=== PATIENT | female | born 1970 | race Caucasian/White ===

== ENCOUNTER 2017-11-01 21:24 | Emergency (ER) | payer MEDICAID, OTHER ==
[~2017-11-01] VITALS: Ht 165.1 cm; Wt 155.0 kg
[~2017-11-01 21:24] MED LIST: FLUO-1 PO; GABA100C4 PO; LISI10TA PO; MECL25CH PO; METF500 PO; NOVONP2 SQ; NOVORP2 SQ; PLAV75TA PO; SIMV10TA PO
[2017-11-01 21:26] VITALS: BP 183/86; PULSE 100; RESP 16; TEMP 97.6; O2SAT 98
[2017-11-01] MEDS ORDERED: METF500T PO (22:05)
[2017-11-01] MEDS ORDERED: LISI10TA PO (22:05)
[2017-11-01] MEDS ORDERED: SIMV10TA PO (22:05)
[2017-11-01] MEDS ORDERED: VIST25CA PO (22:05)
[2017-11-01] MEDS ORDERED: INSU100V2 SQ (22:05)
[2017-11-01] MEDS ORDERED: INSU100V3 SQ (22:05)
[2017-11-01] MEDS ORDERED: HYDR-3516 PO (22:09)
[2017-11-01] MEDS ORDERED: SODIUM CHLOR 0.9% 1000 ML INJ 1,000 ML IV SCH ×2 (22:14)
[2017-11-01] MEDS ORDERED: ONDANSETRON HCL 4 MG/2 ML VIAL IVP ONE (22:15)
[2017-11-01] MEDS ORDERED: HYDROmorphone HCL PF 2 MG/ML VIAL IVS ONE (22:15)
[2017-11-01] MEDS ORDERED: SODIUM CHLORIDE 0.9% FLUSH 10 ML FLUSH IV FLUSH PRN (22:15)
--- NOTE | 2017-11-01 22:20 | PD ---
HPI Chief Complaint: Abdominal Pain Time Seen by Provider: 22:08 Travel History International Travel<30 days: No Contact w/Intl Traveler<30days: No Traveled to known affect area: No History of Present Illness HPI This patient was examined in the presence of a female nurse. 46-year-old female presents for evaluation. For one week she has had abdominal pain, nausea and vomiting, left foot pain associated with a wound on her left foot. Pain is sharp, constant, epigastric, associated with nausea, multiple episodes of nonbloody emesis, decreased appetite. She reports that she recently had a fracture to left foot and was wearing a splint. This was taken off several weeks ago. More recently she was intermittently wearing a brace on her foot and she believes that the brace rubbed against her skin and she developed a wound on her left heel. Over the past week the wounds become more painful, worse when walking. She also endorses hyperglycemia- she is prescribed metformin and insulin for type 2 diabetes however she has not had the energy to take her medications or check her blood sugar regularly. Denies fevers or chills, diarrhea or constipation, dysuria, chest pain or shortness of breath, cough or congestion. She has no other complaints. PFSH Past Medical History Depression: Yes High Cholesterol: Yes Diabetes: Yes Patient Takes Glucophage: Yes Diminished Hearing: No Hypertension: Yes Respiratory: Yes (LUNG PE ) Immunizations Current: Yes Tetanus Vaccination: Unknown Influenza Vaccination: No ?: Not : 2 Para: 2 Tubal Ligation: Yes Past Surgical History Abdominal Surgery: Yes (X3 HERNIA REPAIR) Section: Yes (X2) Gynecologic Surgery: Yes (LEFT OOPHERECTOMY) Other Surgery: Yes (LEFT TOE AMPUTATION) Social History Alcohol Use: No Tobacco Use: No Substance Use: No Allergies-Medications (Allergen,Severity, Reaction): Coded Allergies: morphine (Unverified Allergy, Severe, HIVES/ITCHING, 11/01/17) Reported Meds & Prescriptions Reported Meds & Active Scripts Active Zofran (Ondansetron HCl) 4 Mg Tab 4 Mg PO Q6HR PRN Clindamycin (Clindamycin HCl) 300 Mg Cap 300 Mg PO TID 10 Days Reported Hydrocodone-Acetaminophen 5-325 mg Tab 1 Tab PO Q4H PRN Humulin N Inj (Insulin Human NPH) 1,000 Unit/10 Ml Vial 68 Units SQ BID Humulin R Inj (Insulin Human Regular) 1,000 Unit/10 Ml Vial 2-10 Units SQ TIDAC PRN IMPORTANT TO EAT A MEAL WITHIN 30-60 MINUTES OF DOSING Lisinopril-Hctz 10-12.5 Mg Tab 1 Tab PO DAILY Vistaril (Hydroxyzine Pamoate) 25 Mg Cap 75 Mg PO BID Simvastatin 10 Mg Tab 10 Mg PO HS Metformin (Metformin HCl) 500 Mg Tab 500 Mg PO BIDPC Review of Systems Except as stated in HPI: all other systems reviewed are Neg Physical Exam Narrative GENERAL: This is an obese female who is in no acute distress SKIN: Warm and dry. There is an ulceration with some surrounding erythematous changes on the left heel. Multiple excoriated wounds are noted on the abdomen which the patient reports are chronic. HEAD: Atraumatic. Normocephalic. EYES: Pupils equal and round. No scleral icterus. No injection or drainage. ENT: No nasal bleeding or discharge. Mucous membranes pink and moist. NECK: Trachea midline. No JVD. CARDIOVASCULAR: Regular rate and rhythm. No murmur appreciated. RESPIRATORY: No accessory muscle use. Clear to auscultation. Breath sounds equal bilaterally. GASTROINTESTINAL: Abdomen soft, tender to palpation in the epigastrium without guarding. No CVA tenderness. MUSCULOSKELETAL: No obvious deformities. No clubbing. No cyanosis. No edema. NEUROLOGICAL: Awake and alert. No obvious cranial nerve deficits. Motor grossly within normal limits. Normal speech. PSYCHIATRIC: Appropriate mood and affect; insight and judgment normal. Data Data Last Documented VS Vital Signs Date Time Temp Pulse Resp B/P (MAP) Pulse Ox O2 Delivery O2 Flow Rate FiO2 11/01/17 21:26 97.6 100 16 183/86 (118) 98 Room Air Orders Orders Complete Blood Count With Diff (11/01/17 22:14) Comprehensive Metabolic Panel (11/01/17 22:14) Lipase (11/01/17 22:14) Urinalysis - C+S If Indicated (11/01/17 22:14) Ct Abd/Pel W Iv Contrast(Rout) (11/01/17 22:14) Iv Access Insert/Monitor (11/01/17 22:14) Ecg Monitoring (11/01/17 22:14) Oximetry (11/01/17 22:14) Hydromorphone Pf Inj (Dilaudid Pf Inj) (11/01/17 22:15) Ondansetron Inj (Zofran Inj) (11/01/17 22:15) Sodium Chlor 0.9% 1000 Ml Inj (Ns 1000 M (11/01/17 22:14) Sodium Chloride 0.9% Flush (Ns Flush) (11/01/17 22:15) Beta Hydroxybutyrate (Acetone) (11/01/17 22:14) Foot, Complete (Isc1hcm) (11/01/17 ) Sodium Chlor 0.9% 1000 Ml Inj (Ns 1000 M (11/01/17 22:14) Arterial Blood Gas (Abg) (11/01/17 ) Insulin Human Regular Inj (Novolin R Inj (11/02/17 00:00) Iohexol 350 Inj (Omnipaque 350 Inj) (11/02/17 01:11) Sulfamet-Trimeth Ds 800-160 Mg (Bactrim (11/02/17 02:00) Cephalexin (Keflex) (11/02/17 02:00) Wound Care (11/02/17 01:57) Clindamycin (Cleocin) (11/02/17 02:15) Insulin Human Regular Inj (Novolin R Inj (11/02/17 02:15) Sodium Chlor 0.9% 1000 Ml Inj (Ns 1000 M (11/02/17 02:03) Insulin Human Regular Inj (Novolin R Inj (11/02/17 02:15) Ed Discharge Order (11/02/17 02:15) Clindamycin 600 Mg/Ns Premix (Cleocin 60 (11/02/17 02:30) Labs Laboratory Tests Test 11/01/17 22:22 11/01/17 22:47 White Blood Count 8.1 TH/MM3 Red Blood Count 4.60 MIL/MM3 Hemoglobin 13.2 GM/DL Hematocrit 39.0 % Mean Corpuscular Volume 84.6 FL Mean Corpuscular Hemoglobin 28.6 PG Mean Corpuscular Hemoglobin Concent 33.8 % Red Cell Distribution Width 13.4 % Platelet Count 378 TH/MM3 Mean Platelet Volume 7.0 FL Neutrophils (%) (Auto) 68.6 % Lymphocytes (%) (Auto) 19.3 % Monocytes (%) (Auto) 11.1 % Eosinophils (%) (Auto) 0.6 % Basophils (%) (Auto) 0.4 % Neutrophils # (Auto) 5.6 TH/MM3 Lymphocytes # (Auto) 1.6 TH/MM3 Monocytes # (Auto) 0.9 TH/MM3 Eosinophils # (Auto) 0.1 TH/MM3 Basophils # (Auto) 0.0 TH/MM3 CBC Comment DIFF FINAL Differential Comment Blood Urea Nitrogen 19 MG/DL Creatinine 1.24 MG/DL Random Glucose 424 MG/DL Total Protein 9.1 GM/DL Albumin 3.6 GM/DL Calcium Level 9.8 MG/DL Alkaline Phosphatase 90 U/L Aspartate Amino Transf (AST/SGOT) 19 U/L Alanine Aminotransferase (ALT/SGPT) 17 U/L Total Bilirubin 1.1 MG/DL Sodium Level 133 MEQ/L Potassium Level 4.7 MEQ/L Chloride Level 94 MEQ/L Carbon Dioxide Level 27.1 MEQ/L Anion Gap 12 MEQ/L Estimat Glomerular Filtration Rate 47 ML/MIN Lipase 158 U/L B-Hydroxybutyrate 3.08 MMOL/L Blood Gas Puncture Site RT RADIAL Blood Gas Patient Temperature 98.6 Blood Gas HCO3 24 mmol/L Blood Gas Base Excess 0.2 mmol/L Blood Gas Oxygen Saturation 94 % Arterial Blood pH 7.44 Arterial Blood Partial Pressure CO2 36 mmHg Arterial Blood Partial Pressure O2 86 mmHG Arterial Blood Oxygen Content 16.1 Vol % Arterial Blood Carboxyhemoglobin 1.7 % Arterial Blood Methemoglobin 0.6 % Blood Gas Hemoglobin 12.1 G/DL Oxygen Delivery Device ROOM AIR Blood Gas Inspired Oxygen 21 % MDM Medical Decision Making Medical Screen Exam Complete: Yes Emergency Medical Condition: Yes Medical Record Reviewed: Yes Differential Diagnosis Foot ulceration, cellulitis, osteomyelitis, pancreatitis, gastroenteritis, DKA, HHS, dehydration, gastritis, colitis, cholecystitis Narrative Course The patient was placed on ECG monitoring pulse oximetry. CT of the abdomen and pelvis, left foot x-ray have been ordered. Lab work has been ordered. The patient will be given IV fluids, Zofran, Dilaudid. X-ray reveals CONCLUSION: 1. Fifth metatarsal base fracture with faint fracture line remaining visible. 2. Diffuse moderate bony demineralization. 3. Healed proximal lateral cuboid fracture. Mild osteophyte formation at the calcaneocuboid joint. 4. Absent third toe distal phalanx. CT abdomen and pelvis reveals CONCLUSION: 1. Postsurgical findings of the anterior abdominal wall and lower abdomen/ pelvis. Prominent midline lower anterior abdominal wall hernia and left-sided para midline anterior abdominal wall hernia. Hernias contain small bowel loops and transverse colon. No evidence of bowel dilatation or associated bowel wall thickening. 2. Left ovary is somewhat prominent in size measuring 5.4 x 3.0 cm. May be related to a left ovarian cyst. 3. Spleen is upper limits of normal in size. Possible early findings of cirrhosis in the liver. 4. Degenerative findings of the lower lumbar spine. Reassuringly the patient has not vomited at all during her hospital stay. Lab work notable for blood glucose of 424, BUN 19, creatinine 1.24, beta hydroxybutyrate 3.8. The patient is not in DKA and she has no leukocytosis. No evidence for acute intra-abdominal process, no evidence for osteomyelitis of the foot. Certainly given her diabetes with poor medication compliance, she is at high risk of worsening infection from her recent left foot wound. For that reason the patient will be referred to Dr. Bey for close wound care follow-up. The patient was given 2 L of IV fluids as well as insulin here. She will be given doses of clindamycin prior to discharge. Her repeat blood sugar was 370 and she appears to be very insulin resistant. Therefore additional 10 units of insulin and 1 L of fluids have been ordered however the patient is refusing because she wants to go home. An oral dose of clindamycin was also ordered however the patient refused because she did not want to attempt to swallow: Mycin. Therefore IM clindamycin was ordered and she will be discharged with prescriptions for clindamycin, Zofran. Diagnosis Primary Impression: Hyperglycemia Additional Impressions: Nausea and vomiting Cellulitis of left foot Open wound of left foot Referrals: Saleem BeyM Additional Instructions: As discussed, it is essential that you monitor your blood sugar regularly and take your diabetic medications as prescribed. Follow up closely with family support specialist Dr. Bey in the next 3-4 days. Medications as prescribed. Return for any emergent medical conditions. Med/Other Pt SpecificInfo: Prescription(s) given, Wound Care Scripts Ondansetron (Zofran) 4 Mg Tab 4 MG PO Q6HR Y for NAUSEA OR VOMITING, #20 TAB 0 Refills Prov: Jose Carlos Mullen MD 11/02/17 Clindamycin (Clindamycin) 300 Mg Cap 300 MG PO TID for Infection for 10 Days, CAP 0 Refills Prov: Jose Carlos Mullen MD 11/02/17 Disposition: 01 DISCHARGE HOME Condition: Stable Gume Cole Nov 01, 2017 22:20
[2017-11-01 23:08] LABS: AUTOMATED NEUTROPHIL # 5.6 TH/MM3 (1.8-7.7); BASOPHIL % 0.4 % (0.0-2.0); EOSINOPHIL # 0.1 TH/MM3 (0-0.4); EOSINOPHIL % 0.6 % (0.0-4.0); HEMOGLOBIN 13.2 GM/DL (11.6-15.3); LYMPH % 19.3 % (9.0-44.0); LYMPHOCYTE # 1.6 TH/MM3 (1.0-4.8); MEAN CELL VOLUME 84.6 FL (80.0-100.0); MEAN CORPUSCULAR HEMOGLOBIN 28.6 PG (27.0-34.0); MEAN CORPUSCULAR HGB CONC 33.8 % (32.0-36.0); MONO % 11.1 % (0.0-8.0); MONOCYTE # 0.9 TH/MM3 (0-0.9); NEUT % 68.6 % (16.0-70.0); PLATELET COUNT 378 TH/MM3 (150-450); RED CELL DISTRIBUTION WIDTH 13.4 % (11.6-17.2); WHITE BLOOD COUNT 8.1 TH/MM3 (4.0-11.0)
[2017-11-01 23:22] LABS: ALBUMIN 3.6 GM/DL (3.4-5.0); ALKALINE PHOSPHATASE 90 U/L (45-117); ALT (GPT) 17 U/L (10-53); AST (GOT) 19 U/L (15-37); BICARBONATE 27.1 MEQ/L (21.0-32.0); BLOOD UREA NITROGEN 19 MG/DL (7-18); CALCIUM 9.8 MG/DL (8.5-10.1); CHLORIDE 94 MEQ/L (98-107); CREATININE 1.24 MG/DL (0.50-1.00); GLOMERULAR FILTRATION RATE 47 ML/MIN (>89); LIPASE 158 U/L (73-393); SODIUM (NA) 133 MEQ/L (136-145); TOTAL BILIRUBIN ADULT 1.1 MG/DL (0.2-1.0); TOTAL PROTEIN 9.1 GM/DL (6.4-8.2)
[2017-11-01 23:24] LABS: GLUCOSE,RANDOM 424 MG/DL (74-106)
--- NOTE | 2017-11-02 00:02 | RADRPT ---
EXAM DATE/TIME: 11/01/2017 23:21 [facility] COMPARISON: No previous studies available for comparison. INDICATIONS : Pt broke foot a few months ago- says not healing properly. MEDICAL HISTORY : None. SURGICAL HISTORY : None. ENCOUNTER: Initial ACUITY: 2 months PAIN SCORE: 7/10 LOCATION: Left Foot FINDINGS: 3 views of the left foot. Moderate severity diffuse bone demineralization. Third toe distal phalanx i s absent. Fracture of the styloid of the fifth metatarsal base. Fracture line is faintly visible. Bon y remodeling is noted at the metatarsal shaft. Bone alignment is within normal limits. A mild deformi ty of the lateral proximal pole of the cuboid indicating subacute to chronic healed fracture deformit y. Moderate sized plantar calcaneal spur. CONCLUSION: 1. Fifth metatarsal base fracture with faint fracture line remaining visible. 2. Diffuse moderate bony demineralization. 3. Healed proximal lateral cuboid fracture. Mild osteophyte formation at the calcaneocuboid joint. 4. Absent third toe distal phalanx. Missael Bush MD on November 01, 2017 at 23:57 Board Certified Radiologist. This report was verified electronically.
[2017-11-02] MEDS ORDERED: IOHEXOL 350 MG/ML 10 ML VIAL (for RAD DIAG) IVCONTRAST ONE (01:11)
--- NOTE | 2017-11-02 01:30 | RADRPT ---
EXAM DATE/TIME: 11/02/2017 00:56 [facility] COMPARISON: No previous studies available for comparison. INDICATIONS : Abdominal pain with vomiting. IV CONTRAST: 85 cc Omnipaque 350 (iohexol) IV ORAL CONTRAST: No oral contrast ingested. RADIATION DOSE: 37.66 CTDIvol (mGy) ; Patient body habitus MEDICAL HISTORY : Hypertension. Diabetes mellitus type 2. Hernia SURGICAL HISTORY : Tubal ligation. ENCOUNTER: Initial ACUITY: 1 day PAIN SCALE: 6/10 LOCATION: abdomen TECHNIQUE: Volumetric scanning of the abdomen and pelvis was performed. Using automated exposure control and ad justment of the mA and/or kV according to patient size, radiation dose was kept as low as reasonably achievable to obtain optimal diagnostic quality images. DICOM format image data is available electro nically for review and comparison. FINDINGS: LOWER LUNGS: The visualized lower lungs are clear. LIVER: Minimal nodularity of the liver capsule diffusely indicating possible early findings of cirrhosis. No focal masses identified. Gallbladder within normal limits. SPLEEN: Spleen is upper limits of normal in size measuring 12 cm in craniocaudal dimension PANCREAS: Within normal limits. KIDNEYS: Normal in size and shape. There is no mass, stone or hydronephrosis. ADRENAL GLANDS: Within normal limits. VASCULAR: There is no aortic aneurysm. BOWEL/MESENTERY: The stomach, small bowel, and colon demonstrate no acute abnormality. There is no free intraperitone al air or fluid. ABDOMINAL WALL: Left-sided para midline anterior abdominal wall hernia containing a portion of the transverse colon. The hernia measures 10 cm in diameter. The neck of the hernia measures 5 cm. Midline lower anterior a bdominal wall hernia in the pelvis containing multiple loops of small bowel. It measures 13 cm. The n jp measures 3.7 cm. RETROPERITONEUM: There is no lymphadenopathy. BLADDER: No wall thickening or mass. REPRODUCTIVE: Left ovary is prominent measuring 5.4 x 3.0 cm. INGUINAL: There is no lymphadenopathy or hernia. MUSCULOSKELETAL: Moderate severity degenerative findings of the lower lumbar spine. CONCLUSION: 1. Postsurgical findings of the anterior abdominal wall and lower abdomen/pelvis. Prominent midline l ower anterior abdominal wall hernia and left-sided para midline anterior abdominal wall hernia. Herni as contain small bowel loops and transverse colon. No evidence of bowel dilatation or associated kermit l wall thickening. 2. Left ovary is somewhat prominent in size measuring 5.4 x 3.0 cm. May be related to a left ovarian cyst. 3. Spleen is upper limits of normal in size. Possible early findings of cirrhosis in the liver. 4. Degenerative findings of the lower lumbar spine. Missael Bush MD on November 02, 2017 at 1:17 Board Certified Radiologist. This report was verified electronically.
[2017-11-02] MEDS ORDERED: CEPHALEXIN MONOHYDRATE 500 MG CAP PO ONE (02:00)
[2017-11-02] MEDS ORDERED: SULFAMETHOXAZOLE-TRIMETHOPRIM DS 800-160 MG TAB PO ONE (02:00)
[2017-11-02] MEDS ORDERED: CLIN300C5 PO (02:01)
[2017-11-02] MEDS ORDERED: ZOFR4TAB PO (02:01)
[2017-11-02] MEDS ORDERED: SODIUM CHLOR 0.9% 1000 ML INJ 1,000 ML IV SCH (02:03)
[2017-11-02] MEDS ORDERED: CLINDAMYCIN 150 MG CAP PO ONE (02:15)
[2017-11-02] MEDS ORDERED: INSULIN HUMAN REGULAR 1,000 UNITS/10 ML VIAL IV PUSH ONE ×3 (02:15)
[2017-11-02] MEDS ORDERED: CLINDAMYCIN PHOS 600 MG/4 ML VIAL IM ONE (02:30)
[2017-11-02] MEDS ORDERED: CLINDAMYCIN 600 MG/NS PREMIX 50 ML IV ONE (02:30)
== END 2017-11-02 02:59 | disposition home or self-care (01) ==
LOC: NEPD 21:24
DX: E11.65 Type 2 diabetes mellitus with hyperglycemia (principal); R11.2 Nausea with vomiting, unspecified; L03.116 Cellulitis of left lower limb; K43.9 Ventral hernia without obstruction or gangrene; F32.9 Major depressive disorder, single episode, unspecified; E78.00 Pure hypercholesterolemia, unspecified; I10 Essential (primary) hypertension; Z79.4 Long term (current) use of insulin; Z79.899 Other long term (current) drug therapy
CPT/HCPCS: 36600; 73630; 74177; 80053; 82010; 82805; 83690; 85025; 96361; 96372; 96374; 96375; 99285; J1170; J1815; J2405; J7030; Q9967

== ENCOUNTER 2018-02-07 05:19 | Observation (INO) | payer OTHER ==
[2018-02-07] VITALS (8 sets, daily range): BP systolic 158–211; BP diastolic 70–109; PULSE 84–98; RESP 16–20; TEMP 97.8–98.7; O2SAT 94–100
[~2018-02-07] VITALS: Ht 165.1 cm; Wt 172.5 kg
[~2018-02-07 05:19] MED LIST changes: +CLIN300C5 PO; -FLUO-1 PO; -GABA100C4 PO; +HYDR-3516 PO; +INSU100V2 SQ; +INSU100V3 SQ; -MECL25CH PO; -METF500 PO; +METF500T PO; -NOVONP2 SQ; -NOVORP2 SQ; -PLAV75TA PO; +VIST25CA PO; +ZOFR4TAB PO
[2018-02-07] MEDS ORDERED: SODIUM CHLOR 0.9% 1000 ML INJ 1,000 ML IV ONE ×2 (05:34→07:00)
[2018-02-07] MEDS ORDERED: diphenhydrAMINE HCL 50 MG/ML VIAL IV PUSH ONE (05:45)
[2018-02-07] MEDS ORDERED: METOCLOPRAMIDE HCL 10 MG/2 ML VIAL IV PUSH ONE (05:45)
[2018-02-07] MEDS ORDERED: SODIUM CHLORIDE 0.9% FLUSH 10 ML FLUSH IVF PRN (05:45)
[2018-02-07 05:50] LABS: AUTOMATED NEUTROPHIL # 14.1 TH/MM3 (1.8-7.7); BASOPHIL % 0.2 % (0.0-2.0); HEMOGLOBIN 12.6 GM/DL (11.6-15.3); LYMPH % 4.5 % (9.0-44.0); LYMPHOCYTE # 0.7 TH/MM3 (1.0-4.8); MEAN CELL VOLUME 81.3 FL (80.0-100.0); MEAN CORPUSCULAR HEMOGLOBIN 26.9 PG (27.0-34.0); MEAN CORPUSCULAR HGB CONC 33.1 % (32.0-36.0); MEAN PLATELET VOLUME 7.4 FL (7.0-11.0); MONO % 2.5 % (0.0-8.0); MONOCYTE # 0.4 TH/MM3 (0-0.9); NEUT % 92.8 % (16.0-70.0); PLATELET COUNT 237 TH/MM3 (150-450); RED BLOOD COUNT 4.68 MIL/MM3 (4.00-5.30); RED CELL DISTRIBUTION WIDTH 15.2 % (11.6-17.2); WHITE BLOOD COUNT 15.2 TH/MM3 (4.0-11.0)
[2018-02-07] MEDS ORDERED: PANTOPRAZOLE INJ 80 MG in SODIUM CHLORIDE 0.9% INJ 35 ML IV ONE (06:00)
[2018-02-07] MEDS ORDERED: PANTOPRAZOLE INJ 80 MG in SODIUM CHLORIDE 0.9% INJ 100 ML IV SCH (06:00)
--- NOTE | 2018-02-07 06:05 | PD ---
HPI . Vomiting Chief Complaint: GI Complaint Time Seen by Provider: 05:23 Travel History International Travel<30 days: No Contact w/Intl Traveler<30days: No Traveled to known affect area: No History of Present Illness HPI This is a diabetic patient who weighs 200 kg with a BMI of 73 who presents with the chief complaint of vomiting for the last several days. It has become acutely worse tonight. She states that the emesis became coffee ground in color about 2 hours prior to presentation. She is complaining with associated abdominal pain and rates the pain 10/10. She has a history of gastroparesis, hypertension, hyperlipidemia and previous PE. She is on Eliquis for the PE. [facility] Past Medical History Depression: Yes High Cholesterol: Yes Diabetes: Yes Patient Takes Glucophage: No Diminished Hearing: No Hypertension: Yes Respiratory: Yes (LUNG PE ) Immunizations Current: Yes Tetanus Vaccination: Unknown Influenza Vaccination: No ?: Not : 2 Para: 2 Tubal Ligation: Yes Past Surgical History Abdominal Surgery: Yes (X3 HERNIA REPAIR) Section: Yes (X2) Gynecologic Surgery: Yes (LEFT OOPHERECTOMY) Other Surgery: Yes (LEFT TOE AMPUTATION) Social History Alcohol Use: No Tobacco Use: No Substance Use: No Allergies-Medications (Allergen,Severity, Reaction): Coded Allergies: morphine (Unverified Allergy, Severe, HIVES/ITCHING, 02/07/18) Reported Meds & Prescriptions Reported Meds & Active Scripts Active Reported Humulin N Inj (Insulin Human NPH) 1,000 Unit/10 Ml Vial 68 Units SQ BID Humulin R Inj (Insulin Human Regular) 1,000 Unit/10 Ml Vial 2-10 Units SQ TIDAC PRN IMPORTANT TO EAT A MEAL WITHIN 30-60 MINUTES OF DOSING Lisinopril-Hctz 10-12.5 Mg Tab 1 Tab PO DAILY Vistaril (Hydroxyzine Pamoate) 25 Mg Cap 75 Mg PO BID Simvastatin 10 Mg Tab 10 Mg PO HS Metformin (Metformin HCl) 500 Mg Tab 500 Mg PO BIDPC Review of Systems Except as stated in HPI: all other systems reviewed are Neg General / Constitutional: No: Fever, Chills Gastrointestinal: Positive: Nausea, Vomiting, Abdominal Pain Physical Exam Narrative GENERAL: Markedly obese. Abdominal exam is unreliable secondary to the obesity. SKIN: warm/dry. Good color. HEAD: Normocephalic. Atraumatic. EYES: Pupils equal and round. No scleral icterus. No injection or drainage. ENT: No nasal bleeding or discharge. Mucous membranes pink and moist. NECK: Trachea midline. Full range of motion without pain.. CARDIOVASCULAR: Regular rate and rhythm. Heart sounds are normal. RESPIRATORY: No accessory muscle use. Clear to auscultation. Breath sounds equal bilaterally. GASTROINTESTINAL: Abdomen soft. Diffusely tender. MUSCULOSKELETAL: No obvious deformities. NEUROLOGICAL: Awake and alert. No obvious cranial nerve deficits. Motor grossly within normal limits. Normal speech. PSYCHIATRIC: Appropriate mood and affect; insight and judgment normal. Data Data Last Documented VS Vital Signs Date Time Temp Pulse Resp B/P (MAP) Pulse Ox O2 Delivery O2 Flow Rate FiO2 02/07/18 08:06 96 20 178/79 (112) 100 Room Air 02/07/18 07:15 97.8 Orders Orders Complete Blood Count With Diff (02/07/18 05:34) Basic Metabolic Panel (Bmp) (02/07/18 05:34) Urinalysis - C+S If Indicated (02/07/18 05:34) Lipase (02/07/18 05:34) Iv Access Insert/Monitor (02/07/18 05:34) NPO (02/07/18 05:34) Sodium Chlor 0.9% 1000 Ml Inj (Ns 1000 M (02/07/18 05:34) Sodium Chloride 0.9% Flush (Ns Flush) (02/07/18 05:45) Ed Urine Pregnancytest Poc (02/07/18 05:34) Metoclopramide Inj (Reglan Inj) (02/07/18 05:45) Diphenhydramine Inj (Benadryl Inj) (02/07/18 05:45) Cath For Specimen (02/07/18 05:36) Pantoprazole Inj (Protonix Inj) (02/07/18 06:00) Pantoprazole Inj (Protonix Inj) (02/07/18 06:00) Fentanyl Inj (Fentanyl Inj) (02/07/18 06:45) Insulin Human Regular Inj (Novolin R Inj (02/07/18 07:00) Blood Glucose (02/07/18 06:46) Sodium Chlor 0.9% 1000 Ml Inj (Ns 1000 M (02/07/18 07:00) Fentanyl Inj (Fentanyl Inj) (02/07/18 08:11) Admit Order (Ed Use Only) (02/07/18 08:39) Labs Laboratory Tests Test 02/07/18 05:30 02/07/18 07:55 White Blood Count 15.2 TH/MM3 Red Blood Count 4.68 MIL/MM3 Hemoglobin 12.6 GM/DL Hematocrit 38.0 % Mean Corpuscular Volume 81.3 FL Mean Corpuscular Hemoglobin 26.9 PG Mean Corpuscular Hemoglobin Concent 33.1 % Red Cell Distribution Width 15.2 % Platelet Count 237 TH/MM3 Mean Platelet Volume 7.4 FL Neutrophils (%) (Auto) 92.8 % Lymphocytes (%) (Auto) 4.5 % Monocytes (%) (Auto) 2.5 % Eosinophils (%) (Auto) 0.0 % Basophils (%) (Auto) 0.2 % Neutrophils # (Auto) 14.1 TH/MM3 Lymphocytes # (Auto) 0.7 TH/MM3 Monocytes # (Auto) 0.4 TH/MM3 Eosinophils # (Auto) 0.0 TH/MM3 Basophils # (Auto) 0.0 TH/MM3 CBC Comment DIFF FINAL Differential Comment Blood Urea Nitrogen 20 MG/DL Creatinine 1.11 MG/DL Random Glucose 478 MG/DL Calcium Level 9.3 MG/DL Sodium Level 138 MEQ/L Potassium Level 3.8 MEQ/L Chloride Level 101 MEQ/L Carbon Dioxide Level 22.5 MEQ/L Anion Gap 15 MEQ/L Estimat Glomerular Filtration Rate 53 ML/MIN Lipase 67 U/L Urine Color YELLOW Urine Turbidity CLEAR Urine pH 6.0 Urine Specific Carmichael 1.029 Urine Protein 300 mg/dL Urine Glucose (UA) 1000 mg/dL Urine Ketones 80 mg/dL Urine Occult Blood MOD Urine Nitrite NEG Urine Bilirubin NEG Urine Urobilinogen LESS THAN 2.0 MG/DL Urine Leukocyte Esterase NEG Urine RBC 5 /hpf Urine WBC 1 /hpf Urine Squamous Epithelial Cells 5 /hpf Urine Bacteria OCC /hpf Microscopic Urinalysis Comment CULT NOT INDICATED MDM Medical Decision Making Medical Screen Exam Complete: Yes Emergency Medical Condition: Yes Medical Record Reviewed: Yes (Medical history is significant for diabetes, hypertension, hyperlipidemia and previous PE.) Differential Diagnosis Differential diagnosis includes but is not limited to viral gastritis, food poisoning, pancreatitis, pneumonia, hepatitis, acute coronary syndrome, Narrative Course This is a patient with diabetes and gastroparesis who presents to us with emesis. She has had emesis for the last few days but it has become acutely worse and is now coffee-ground in appearance. She is on Eliquis. I have ordered Reglan and Benadryl for the nausea and vomiting associated with gastroparesis. She has requested pain medication. She is allergic to morphine. She is specifically requesting either fentanyl or Dilaudid. I have ordered fentanyl 25 mcg. She will be given a Protonix bolus and placed on a drip. Labs are pending. The patient has adamantly refused a cath urine. CBC & BMP Diagram 02/07/18 05:30 Calcium Level 9.3 HemaPrompt Point of Care Internal Pos. & Neg. Controls: Passed Gastric Specimen Occult Blood: Positive Diagnosis Primary Impression: Vomiting Qualified Codes: K92.0 - Hematemesis Additional Impression: Diabetes Qualified Codes: E11.65 - Type 2 diabetes mellitus with hyperglycemia; Z79.4 - intermediate (current) use of insulin Condition: Stable Dorys Logan MD Feb 07, 2018 06:05
[2018-02-07 06:07] LABS: BICARBONATE 22.5 MEQ/L (21.0-32.0); CALCIUM 9.3 MG/DL (8.5-10.1); CREATININE 1.11 MG/DL (0.50-1.00)
[2018-02-07] MEDS ORDERED: INSULIN HUMAN REGULAR 1,000 UNITS/10 ML VIAL IV PUSH ONE (07:00)
--- NOTE | 2018-02-07 07:57 | PD ---
Physical Exam Narrative Receive sign out to follow up repeat glucose after insulin and to reevaluate patient for admission. 47yo F with morbid obesity, DM, gastroparesis on chronic percocet, PE on eliquis here with c/o of vomiting and hematemesis. Pt was given diphenhydramine , reglan, fentanyl and 20 units of regular insulin. Pt also with NS IVF and protonix drip. Pt said she has not taken eliquis for at least 4-5 days. Pt reevaluated at bedside and still has epigastric abdominal pain and nausea. Has a very small amount of black vomit which was hemoccult positive. Pt is hemodynamically stable. Labs reviewed, mild leukocytosis at 15.2. H/H normal at 12.6/38.0. Glucose elevated at 478. No increased anion gap. CO2 normal at 22.5. Pt given 20 units of regular insulin by previous team since she is 200kg. Will give another dose of fentanyl. Discussed with Dr. Mills and accepted to her service. Data Data Last Documented VS Vital Signs Date Time Temp Pulse Resp B/P (MAP) Pulse Ox O2 Delivery O2 Flow Rate FiO2 02/07/18 08:06 96 20 178/79 (112) 100 Room Air 02/07/18 07:15 97.8 Orders Orders Complete Blood Count With Diff (02/07/18 05:34) Basic Metabolic Panel (Bmp) (02/07/18 05:34) Urinalysis - C+S If Indicated (02/07/18 05:34) Lipase (02/07/18 05:34) Iv Access Insert/Monitor (02/07/18 05:34) NPO (02/07/18 05:34) Sodium Chlor 0.9% 1000 Ml Inj (Ns 1000 M (02/07/18 05:34) Sodium Chloride 0.9% Flush (Ns Flush) (02/07/18 05:45) Ed Urine Pregnancytest Poc (02/07/18 05:34) Metoclopramide Inj (Reglan Inj) (02/07/18 05:45) Diphenhydramine Inj (Benadryl Inj) (02/07/18 05:45) Cath For Specimen (02/07/18 05:36) Pantoprazole Inj (Protonix Inj) (02/07/18 06:00) Pantoprazole Inj (Protonix Inj) (02/07/18 06:00) Fentanyl Inj (Fentanyl Inj) (02/07/18 06:45) Insulin Human Regular Inj (Novolin R Inj (02/07/18 07:00) Blood Glucose (02/07/18 06:46) Sodium Chlor 0.9% 1000 Ml Inj (Ns 1000 M (02/07/18 07:00) Fentanyl Inj (Fentanyl Inj) (02/07/18 08:11) Admit Order (Ed Use Only) (02/07/18 08:39) Labs Laboratory Tests Test 02/07/18 05:30 02/07/18 07:55 White Blood Count 15.2 TH/MM3 Red Blood Count 4.68 MIL/MM3 Hemoglobin 12.6 GM/DL Hematocrit 38.0 % Mean Corpuscular Volume 81.3 FL Mean Corpuscular Hemoglobin 26.9 PG Mean Corpuscular Hemoglobin Concent 33.1 % Red Cell Distribution Width 15.2 % Platelet Count 237 TH/MM3 Mean Platelet Volume 7.4 FL Neutrophils (%) (Auto) 92.8 % Lymphocytes (%) (Auto) 4.5 % Monocytes (%) (Auto) 2.5 % Eosinophils (%) (Auto) 0.0 % Basophils (%) (Auto) 0.2 % Neutrophils # (Auto) 14.1 TH/MM3 Lymphocytes # (Auto) 0.7 TH/MM3 Monocytes # (Auto) 0.4 TH/MM3 Eosinophils # (Auto) 0.0 TH/MM3 Basophils # (Auto) 0.0 TH/MM3 CBC Comment DIFF FINAL Differential Comment Blood Urea Nitrogen 20 MG/DL Creatinine 1.11 MG/DL Random Glucose 478 MG/DL Calcium Level 9.3 MG/DL Sodium Level 138 MEQ/L Potassium Level 3.8 MEQ/L Chloride Level 101 MEQ/L Carbon Dioxide Level 22.5 MEQ/L Anion Gap 15 MEQ/L Estimat Glomerular Filtration Rate 53 ML/MIN Lipase 67 U/L Urine Color YELLOW Urine Turbidity CLEAR Urine pH 6.0 Urine Specific [place] 1.029 Urine Protein 300 mg/dL Urine Glucose (UA) 1000 mg/dL Urine Ketones 80 mg/dL Urine Occult Blood MOD Urine Nitrite NEG Urine Bilirubin NEG Urine Urobilinogen LESS THAN 2.0 MG/DL Urine Leukocyte Esterase NEG Urine RBC 5 /hpf Urine WBC 1 /hpf Urine Squamous Epithelial Cells 5 /hpf Urine Bacteria OCC /hpf Microscopic Urinalysis Comment CULT NOT INDICATED MDM Supervised Visit with KALYAN: No HemaPrompt Test Point of Care Internal Pos. & Neg. Controls: Passed Gastric Specimen Occult Blood: Positive Diagnosis Primary Impression: GI bleed Qualified Codes: K29.71 - Gastritis, unspecified, with bleeding Admitting Information Admitting Physician Requests: Observation Condition: Stable Eliza Sagastume DO Feb 07, 2018 07:57
[2018-02-07 08:17] LABS: BACTERIA, URINE OCC /hpf; BILIRUBIN, URINE NEG (NEG); BLOOD, URINE MOD (NEG); GLUCOSE,URINE 1000 mg/dL (NEG); KETONE, URINE 80 mg/dL (NEG); NITRITE,URINE NEG (NEG); SQUAMOUS EPITHELIAL CELL URINE 5 /hpf (0-5); URINE COLOR YELLOW (YELLW/STRAW); URINE LEUKOCYTE ESTERASE NEG (NEG)
[2018-02-07] MEDS ORDERED: IOHEXOL 350 MG/ML 10 ML VIAL (for RAD DIAG) IVCONTRAST ONE (08:42)
[2018-02-07] MEDS ORDERED: SODIUM CHLORIDE 0.9% FLUSH 10 ML FLUSH IV FLUSH PRN (08:45)
[2018-02-07] MEDS ORDERED: DEXTROSE 50% IN WATER 50 ML VIAL(D50) IV PUSH PRN (08:45)
[2018-02-07] MEDS ORDERED: GLUCAGON 1 MG/ML VIAL OTHER PRN (08:45)
[2018-02-07] MEDS ORDERED: NALOXONE HCL 0.4 MG/ML AMP IV PUSH PRN (08:45)
[2018-02-07] MEDS ORDERED: ACETAMINOPHEN 325 MG TAB PO PRN (08:45)
[2018-02-07] MEDS: SODIUM CHLOR 0.9% 1000 ML INJ 1,000 ML IV SCH ×2 (11:33→13:52)
[2018-02-07] MEDS: ONDANSETRON HCL 4 MG/2 ML VIAL IVP PRN ×2 (11:33→18:12)
[2018-02-07] MEDS: SODIUM CHLORIDE 0.9% FLUSH 10 ML FLUSH IV FLUSH SCH ×2 (11:33→19:41)
[2018-02-07] MEDS: INSULIN ASPART SUPPLEMENTAL SCALE SQ SCH ×3 (11:34→20:35)
--- NOTE | 2018-02-07 11:37 | PD.CONS ---
HPI History of Present Illness This is a 47 year old F with PMH significant for HTN, insulin dependent DM, gastroparesis. Pt presented to the ER this morning with complaints of coffee ground emesis with some hematemesis that began at 2am this morning. States has been intermittently vomiting for the past couple days but due to history of gastroparesis did not think much of it. She has also been having diarrhea that has been constant for the past 2 days, denies melena and hematochezia. Pt is unsure of sick contacts, her at home had similar symptoms but he also has gastroparesis. Reports recent URI, was not on medications. Associated fever, chills. Also complaining of epigastric pain that began yesterday, described as burning sensation. Recently moved here and does not currently follow a GI doctor. Denies history of GIB. Last EGD was a year ago at [facility] for dysphagia, reports had a dilatation done, denies dysphagia since then. Occasional acid reflux, does not take OTC medication. Very occasional ETOH. Admits to daily marijuana use. Last PO intake was prior to midnight. Of note, pt with history of PE and a few months ago diagnosed with bilateral DVTs, has been on Eliquis but reports has not taken it in 4-5 days. Denies NSAID use. PFSH Past Medical History HTN Gastroparesis DVT PE DM- insulin dependent Past Surgical History EGD with dilation Coded Allergies: morphine (Unverified Allergy, Severe, HIVES/ITCHING, 02/07/18) Social History Rare ETOH Denies nicotine use Daily marijuana use Review of Systems Gastrointestinal: COMPLAINS OF: Abdominal pain, Diarrhea, Nausea, Vomiting, Heartburn, Hematemesis, DENIES: Black stools, Bloody stools, Constipation, Difficulty Swallowing, Odynophagia, Swelling of Abdomen GI Exam Vitals I&O Vital Signs Date Time Temp Pulse Resp B/P (MAP) Pulse Ox O2 Delivery O2 Flow Rate FiO2 02/07/18 08:06 96 20 178/79 (112) 100 Room Air 02/07/18 07:52 18 02/07/18 07:15 18 02/07/18 07:15 97.8 89 20 180/86 (117) 98 Room Air 02/07/18 05:24 98.3 94 16 162/109 (126) 96 I/O 3/2202/06/18 02/06/18 02/07/18 02/07/18 02/07/18 07:00 15:00 23:00 07:00 15:00 23:00 Intake Total 2035 ml Output Total 600 ml Balance 1435 ml Intake IV Total 2035 ml Output Urine Total 600 ml # Voids 1 # Bowel Movements 0 Laboratory Test 02/07/18 05:30 02/07/18 07:55 White Blood Count 15.2 TH/MM3 Red Blood Count 4.68 MIL/MM3 Hemoglobin 12.6 GM/DL Hematocrit 38.0 % Mean Corpuscular Volume 81.3 FL Mean Corpuscular Hemoglobin 26.9 PG Mean Corpuscular Hemoglobin Concent 33.1 % Red Cell Distribution Width 15.2 % Platelet Count 237 TH/MM3 Mean Platelet Volume 7.4 FL Neutrophils (%) (Auto) 92.8 % Lymphocytes (%) (Auto) 4.5 % Monocytes (%) (Auto) 2.5 % Eosinophils (%) (Auto) 0.0 % Basophils (%) (Auto) 0.2 % Neutrophils # (Auto) 14.1 TH/MM3 Lymphocytes # (Auto) 0.7 TH/MM3 Monocytes # (Auto) 0.4 TH/MM3 Eosinophils # (Auto) 0.0 TH/MM3 Basophils # (Auto) 0.0 TH/MM3 CBC Comment DIFF FINAL Differential Comment Blood Urea Nitrogen 20 MG/DL Creatinine 1.11 MG/DL Random Glucose 478 MG/DL Calcium Level 9.3 MG/DL Sodium Level 138 MEQ/L Potassium Level 3.8 MEQ/L Chloride Level 101 MEQ/L Carbon Dioxide Level 22.5 MEQ/L Anion Gap 15 MEQ/L Estimat Glomerular Filtration Rate 53 ML/MIN Lipase 67 U/L Urine Color YELLOW Urine Turbidity CLEAR Urine pH 6.0 Urine Specific [place] 1.029 Urine Protein 300 mg/dL Urine Glucose (UA) 1000 mg/dL Urine Ketones 80 mg/dL Urine Occult Blood MOD Urine Nitrite NEG Urine Bilirubin NEG Urine Urobilinogen LESS THAN 2.0 MG/DL Urine Leukocyte Esterase NEG Urine RBC 5 /hpf Urine WBC 1 /hpf Urine Squamous Epithelial Cells 5 /hpf Urine Bacteria OCC /hpf Microscopic Urinalysis Comment CULT NOT INDICATED Physical Examination HEENT: Normocephalic; atraumatic CHEST: Even/unlabored CARDIAC: RRR ABDOMEN: Morbidly obese, soft, epigastric TTP, bowel sounds active SKIN: Normal; no rash; no jaundice. 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 Assessment and Plan Plan Assessment: - Coffee ground emesis with reports of hematemesis- began at 2 am this morning and reports multiple episodes. Hemoccult on emesis done in ER (+). H/H stable on admission. Pt denies history of GIB. Rare ETOH. Daily marijuana. Denies NSAIDs. Recently on Eliquis for bilateral DVT and history of PE- has not taken ' in 4-5 days. Associated epigastric pain that began yesterday, diarrhea since yesterday, denies melena, hematochezia, reports intermittent vomiting for the past couple days. (+) Fever, chills. Recent URI, did not take meds. Unsure of sick contacts, with vomiting but also has gastroparesis - Gastroparesis- takes Reglan as needed- not currently followed by a GI doctor, recently moved to [facility] - DM- insulin dependent- BGL 478 on arrival - HTN- per attending - History of PE 8 years ago, DVT a few months ago- on Eliquis, has not taken in 4-5 days - ESTEVAN- ? Dehydration Plan: - EGD today - Obtain consent - Keep NPO - Protonix gtt - Control of BGL - IVF - Serial H/H - Further recommendations based on findings of above Pt has been seen and examined by myself and Dr. Casillas and this note is written on her behalf Shaunna Adan Feb 07, 2018 11:37
[2018-02-07] MEDS ORDERED: ONDANSETRON HCL 4 MG/2 ML VIAL IV ONE (12:00)
[2018-02-07] MEDS ORDERED: LIDOCAINE HCL 1% PF 5 ML SYRINGE OTHER ONE (12:00)
[2018-02-07] MEDS ORDERED: SUCCINYLCHOLINE CHLORIDE 100 MG/5 ML SYRINGE IV PUSH ONE (12:00)
[2018-02-07] MEDS ORDERED: PROPOFOL 200 MG/20 ML AMP IV ONE (12:00)
--- NOTE | 2018-02-07 12:05 | HHI.HP ---
[facility] Leandro Medina DO Admission Diagnosis GI bleed Diagnoses: Chief Complaint: Abdominal pain and hematemesis Travel History International Travel<30 Days: No Contact w/Intl Traveler <30 Da: No Traveled to Known Affected Are: No History of Present Illness This is a 47-year-old female history of type 2 diabetes insulin-dependent and gastroparesis who presented with abdominal pain 24 hours ago. She stated that last night she had vomiting with blood. Blood describes coffee-ground. Patient stated that she has been vomiting since then. I spoke to nurse and patient's nurse stated that she has not witnessed any emesis. At the bedside patient only had some clear saliva in her emesis bag. During the interview the patient she was found sound asleep until I woke her up which she complained of severe pain. Patient stated that the only thing that works for her is IV fentanyl and Dilaudid. I asked the patient had this pain before she initially said no. But later on the interview she said yes but only fentanyl Dilaudid works for her. Patient does have a history of gastroparesis in which she takes reglan. Patient also smokes marijuana on a daily basis. She denies any blood in her stools. She stated that her stools are loose. Patient has not been taking her Eliquis for the past 4-5 days. She did not say why she did not take it. Patient stated that she had a EGD done July 2017 at [facility]. She said that she had an esophageal dilatation. All other review of system reviewed and negative. Past Family Social History Past Medical History HTN Gastroparesis DVT PE DM- insulin dependent Peripheral neuropathy secondary to uncontrolled diabetes. Past Surgical History EGD with dilation 2 A few hernia repairs Total removal Reported Medications Reported Meds & Active Scripts Active Reported Humulin N Inj (Insulin Human NPH) 1,000 Unit/10 Ml Vial 68 Units SQ BID Humulin R Inj (Insulin Human Regular) 1,000 Unit/10 Ml Vial 2-10 Units SQ TIDAC PRN IMPORTANT TO EAT A MEAL WITHIN 30-60 MINUTES OF DOSING Lisinopril-Hctz 10-12.5 Mg Tab 1 Tab PO DAILY Vistaril (Hydroxyzine Pamoate) 25 Mg Cap 75 Mg PO BID Simvastatin 10 Mg Tab 10 Mg PO HS Metformin (Metformin HCl) 500 Mg Tab 500 Mg PO BIDPC Allergies: Coded Allergies: morphine (Unverified Allergy, Severe, HIVES/ITCHING, 02/07/18) Active Ordered Medications Current Medications Sodium Chloride 1,000 ml @ 1,000 mls/hr Q1H ONCE IV Last administered on at 06:17; Start 02/07/18 at 05:34; Stop 02/07/18 at 06:33; Status DC Sodium Chloride (NS Flush) 2 ml UNSCH PRN IVF FLUSH AFTER USING IV ACCESS; Start 02/07/18 at 05:45; Stop 02/07/18 at 08:49; Status DC Metoclopramide HCl (Reglan Inj) 10 mg ONCE ONCE IV PUSH Last administered on at 06:18; Start 02/07/18 at 05:45; Stop 02/07/18 at 05:46; Status DC Diphenhydramine HCl (Benadryl Inj) 50 mg ONCE ONCE IV PUSH Last administered on 02/07/18at 06:17; Start 02/07/18 at 05:45; Stop 02/07/18 at 05:46; Status DC Pantoprazole Sodium 80 mg/ Sodium Chloride 100 ml @ 10 mls/hr CONTINUOUS IV Last administered on 02/07/18at 06:18; Start 02/07/18 at 06:00; Stop 02/07/18 at 08:43; Status DC Pantoprazole Sodium 80 mg/ Sodium Chloride 35 ml @ 420 mls/hr BOLUS ONCE IV Last administered on 02/07/18at 07:21; Start 02/07/18 at 06:00; Stop 02/07/18 at 06:04; Status DC Fentanyl Citrate (fentaNYL INJ) 25 mcg ONCE ONCE IV PUSH Last administered on 02/07/18at 06:52; Start 02/07/18 at 06:45; Stop 02/07/18 at 06:46; Status DC Insulin Human Regular (NovoLIN R INJ) 20 units ONCE ONCE IV PUSH Last administered on 02/07/18at 07:06; Start 02/07/18 at 07:00; Stop 02/07/18 at 07:01 ; Status DC Sodium Chloride 1,000 ml @ 999 mls/hr BOLUS ONCE IV Last administered on 02/07at 06:54; Start 02/07/18 at 07:00; Stop 02/07/18 at 08:00; Status DC Fentanyl Citrate (fentaNYL INJ) 50 mcg ONCE STAT IV PUSH Last administered on 02/07/18at 08:22; Start 02/07/18 at 08:11; Stop 02/07/18 at 08:12; Status DC Sodium Chloride 1,000 ml @ 100 mls/hr Q10H IV Last administered on 02/07/18at 11:33; Start 02/07/18 at 08:39 Sodium Chloride (NS Flush) 2 ml UNSCH PRN IV FLUSH FLUSH AFTER USING IV ACCESS ; Start 02/07/18 at 08:45 Sodium Chloride (NS Flush) 2 ml BID IV FLUSH Last administered on 02/07/18at 11: 33; Start 02/07/18 at 09:00 Acetaminophen (Tylenol) 650 mg Q4H PRN PO TEMP > 100.4; Start 02/07/18 at 08:45 Ondansetron HCl (Zofran Inj) 4 mg Q6H PRN IVP NAUSEA OR VOMITING Last administered on 02/07/18at 11:33; Start 02/07/18 at 08:45 Naloxone HCl (Narcan Inj) 0.4 mg UNSCH PRN IV PUSH SEE LABEL COMMENTS; Start at 08:45 Pantoprazole Sodium (Protonix Inj) 40 mg Q12H IV PUSH ; Start 02/07/18 at 18:00 Dextrose (D50w (Vial) Inj) 50 ml UNSCH PRN IV PUSH HYPOGLYCEMIA-SEE COMMENTS; Start 02/07/18 at 08:45 Glucagon (Glucagon Inj) 1 mg UNSCH PRN OTHER HYPOGLYCEMIA-SEE COMMENTS; Start 02/07/18 at 08:45 Insulin Aspart (NovoLOG SUPPLEMENTAL SCALE) 1 ACHS SLIDING SCALE SQ Last administered on 02/07/18at 11:34; Start 02/07/18 at 12:00 Family History Mother had a history of breast cancer. Social History Rare ETOH Denies nicotine use Daily marijuana use Physical Exam Vital Signs Vital Signs Date Time Temp Pulse Resp B/P (MAP) Pulse Ox O2 Delivery O2 Flow Rate FiO2 02/07/18 11:36 98 18 183/98 (126) 100 Room Air 02/07/18 08:06 96 20 178/79 (112) 100 Room Air 02/07/18 07:52 18 02/07/18 07:15 18 02/07/18 07:15 97.8 89 20 180/86 (117) 98 Room Air 02/07/18 05:24 98.3 94 16 162/109 (126) 96 Physical Exam GENERAL: This is a well-nourished, well-developed patient who was sleeping comfortably in no acute distress before she was woken up. SKIN: No rashes, ecchymoses or lesions. Cool and dry. HEAD: Atraumatic. Normocephalic. No temporal or scalp tenderness. EYES: Pupils equal round and reactive. Extraocular motions intact. No scleral icterus. No injection or drainage. ENT: Nose without bleeding, purulent drainage or septal hematoma. Throat without erythema, tonsillar hypertrophy or exudate. Uvula midline. Airway patent. NECK: Trachea midline. No JVD or lymphadenopathy. Supple, nontender, no meningeal signs. CARDIOVASCULAR: Regular rate and rhythm without murmurs, gallops, or rubs. RESPIRATORY: Clear to auscultation. Breath sounds equal bilaterally. No wheezes , rales, or rhonchi. GASTROINTESTINAL: Abdomen soft, nondistended. + TTP in epigastric area. No hepato-splenomegaly, or palpable masses. No guarding. MUSCULOSKELETAL: Extremities without clubbing, cyanosis, or edema. No joint tenderness, effusion, or edema noted. No calf tenderness. Negative Homans sign bilaterally. NEUROLOGICAL: Awake and alert. Cranial nerves II through XII intact. Motor and sensory grossly within normal limits. Five out of 5 muscle strength in all muscle groups. Normal speech. Laboratory Laboratory Tests Test 02/07/18 05:30 02/07/18 07:55 White Blood Count 15.2 Red Blood Count 4.68 Hemoglobin 12.6 Hematocrit 38.0 Mean Corpuscular Volume 81.3 Mean Corpuscular Hemoglobin 26.9 Mean Corpuscular Hemoglobin Concent 33.1 Red Cell Distribution Width 15.2 Platelet Count 237 Mean Platelet Volume 7.4 Neutrophils (%) (Auto) 92.8 Lymphocytes (%) (Auto) 4.5 Monocytes (%) (Auto) 2.5 Eosinophils (%) (Auto) 0.0 Basophils (%) (Auto) 0.2 Neutrophils # (Auto) 14.1 Lymphocytes # (Auto) 0.7 Monocytes # (Auto) 0.4 Eosinophils # (Auto) 0.0 Basophils # (Auto) 0.0 CBC Comment DIFF FINAL Differential Comment Blood Urea Nitrogen 20 Creatinine 1.11 Random Glucose 478 Calcium Level 9.3 Sodium Level 138 Potassium Level 3.8 Chloride Level 101 Carbon Dioxide Level 22.5 Anion Gap 15 Estimat Glomerular Filtration Rate 53 Lipase 67 Urine Color YELLOW Urine Turbidity CLEAR Urine pH 6.0 Urine Specific [place] 1.029 Urine Protein 300 Urine Glucose (UA) 1000 Urine Ketones 80 Urine Occult Blood MOD Urine Nitrite NEG Urine Bilirubin NEG Urine Urobilinogen LESS THAN 2.0 Urine Leukocyte Esterase NEG Urine RBC 5 Urine WBC 1 Urine Squamous Epithelial Cells 5 Urine Bacteria OCC Microscopic Urinalysis Comment CULT NOT INDICATED Result Diagram: 02/07/1852902/07/18529 Caprini VTE Risk Assessment Caprini VTE Risk Assessment: Mod/High Risk (score >= 2) Caprini Risk Assessment Model Point Value = 1 Point Value = 2 Point Value = 3 Point Value = 5 Age 41-60 Minor surgery BMI > 25 kg/m2 Swollen legs Varicose veins or History of unexplained or recurrent spontaneous Oral contraceptives or hormone replacement Sepsis (< 1 month) Serious lung disease, including pneumonia (< 1 month) Abnormal pulmonary function Acute myocardial infarction Congestive heart failure (< 1 month) History of inflammatory bowel disease Medical patient at bed rest Age 61-74 Arthroscopic surgery Major open surgery (> 45 min) Laparoscopic surgery (> 45 min) Malignancy Confined to bed (> 72 hours) Immobilizing plaster cast Central venous access Age >= 75 History of VTE Family history of VTE Factor V Leiden Prothrombin [id number] Lupus anticoagulant Anticardiolipin antibodies Elevated serum homocysteine Heparin-induced thrombocytopenia Other congenital or acquired thrombophilia Stroke (< 1 month) Elective arthroplasty Hip, pelvis, or leg fracture Acute spinal cord injury (< 1 month) Prophylaxis Regimen Total Risk Factor Score Risk Level Prophylaxis Regimen 0-1 Low Early ambulation 2 Moderate Order ONE of the following: *Sequential Compression Device (SCD) *Heparin 5000 units SQ BID 3-4 Higher Order ONE of the following medications: *Heparin 5000 units SQ TID *Enoxaparin/Lovenox 40 mg SQ daily (WT < 150 kg, CrCl > 30 mL/min) *Enoxaparin/Lovenox 30 mg SQ daily (WT < 150 kg, CrCl > 10-29 mL/min) *Enoxaparin/Lovenox 30 mg SQ BID (WT < 150 kg, CrCl > 30 mL/min) AND/OR *Sequential Compression Device (SCD) 5 or more Highest Order ONE of the following medications: *Heparin 5000 units SQ TID (Preferred with Epidurals) *Enoxaparin/Lovenox 40 mg SQ daily (WT < 150 kg, CrCl > 30 mL/min) *Enoxaparin/Lovenox 30 mg SQ daily (WT < 150 kg, CrCl > 10-29 mL/min) *Enoxaparin/Lovenox 30 mg SQ BID (WT < 150 kg, CrCl > 30 mL/min) AND *Sequential Compression Device (SCD) Assessment and Plan Assessment and Plan This is a 47-year-old female with uncontrolled type 2 diabetes insulin- dependent who presented abdominal pain and hematemesis Hematemesis and abdominal pain per patient -Although patient stated that she is vomiting continuously since this morning none has been witnessed in the emergency department. Vitals are stable and hemoglobin is within normal limits. No active bleeding has been noted in the emergency department. -Patient was given Protonix bolus. Will start Protonix 40 mg IV twice daily. -Trend hemoglobin every 4 hours. -Start IV fluids. Transfuse as needed. GI consulted and will schedule EGD today. -We will give morphine as needed for pain. There is no indication to give patient IV fentanyl and Dilaudid. History of bilateral DVTs and PE -Patient is noncompliant. She was prescribed Eliquis and has not been taking it for 4-5 days. At the moment we will hold Eliquis since she is complaining of a GI bleed. If negative will restart Eliquis. Assessment: Gastroparesis -Needed controlled diabetes. -Also recommend to avoid marijuana use since this can worsen his gastroparesis. -Continue with Reglan. -Need to follow with the GI doctor. DM- insulin dependent- BGL 478 on arrival -Most likely patient has uncontrolled diabetes. Will restart home medication. Placed on insulin sliding scale. Adjust accordingly. Diabetic diet. But she will be n.p.o. at the moment. HTN -Start lisinopril but will give as needed medication. Renal sufficiency -Creatinine 1.1 with GFR of 53. This may be her baseline. She does have uncontrolled hypertension and diabetes which makes her prone to nephropathy. -We will hydrate and continue to monitor. Avoid nephrotoxins. Avoid NSAIDs. Strict ins and out. Peripheral neuropathy -Due to uncontrolled diabetes. Patient will need to control her diabetes. Education given. Marijuana use -This is chronic. Recommend to not use marijuana especially when she has gastroparesis. Marijuana can worsen gastroparesis. DVT prophylaxis -SCDs. We will hold off on any chemoprophylaxis since she is complaining of GI bleed until this is ruled out. Then she needs to resume her Eliquis. Discussed Condition With patient and her nurse Marla Mills MD Feb 07, 2018 12:05
[2018-02-07] MEDS ORDERED: MORPHINE SULFATE 2 MG/ML INJ IV PUSH PRN (12:15)
[2018-02-07] MEDS ORDERED: DO NOT ADM ANY ANTICOAGULANT DRUGS PRN (13:27)
--- NOTE | 2018-02-07 13:54 | GIPROC ---
[facility] [address] [facility]. [facility], [address] EGD PROCEDURE REPORT EXAM DATE: 02/07/2018 PATIENT NAME: Silvia Peña MR #: [id number] BIRTHDATE: 1970 ATTENDING: Binta Casillas MD ORDER #: [id number] CAUSTIC OPERATOR: Ximena Bush and Precious Herman STATUS: inpatient INDICATIONS: The patient is a 47 yr old female here for an EGD due to nausea, vomiting , abdominal pain PROCEDURE PERFORMED: EGD w/ biopsy MEDICATIONS: None and Per Anesthesia. TOPICAL ANESTHETIC: none CONSENT: The patient understands the risks and benefits of the procedure and understands that these risks include, but are not limited to: sedation, allergic reaction, infection, perforation and/or bleeding. Alternative means of evaluation and treatment include, among others: physical exam, x-rays, and/or surgical intervention. The patient elects to proceed with this endoscopic procedure. medical equipment was checked for proper function. Hand hygiene and appropriate measures for infection prevention was taken. After the risks, benefits and alternatives of the procedure were thoroughly explained, Informed consent was verified, confirmed and timeout was successfully executed by the treatment team. The patient was anesthetized with topical anesthesia and the Pentax [id number] endoscope was introduced through the mouth and advanced to the second portion of the duodenum. Retroflexed views revealed a hiatal hernia The gastroscope was then slowly withdrawn and removed. Duodenum normal-biopsy to r/o celiac disease gastritis antrum-biopsy esophagitis distal esophagus-biopsy. ADVERSE EVENTS: There were no complications. IMPRESSIONS: 1. Duodenum normal-biopsy to r/o celiac disease gastritis antrum-biopsy esophagitis distal esophagus-biopsy 2. Retroflexed views revealed a hiatal hernia RECOMMENDATIONS: 1. Await biopsy results. Biopsy results will not be ready for 7-10 days. If you don't hear from us in two weeks, call our office for biopsy results. 2. Anti-reflux regimen 3. Continue PPI 4. Lfts lipase ct abdomen/pelvis PATIENT CONDITION: stable DISPOSITION: Inpatient REPEAT EXAM: Return 6 weeks EGD Binta Casillas MD eSigned: Binta Casillas MD 02/07/2018 1:53 PM cc: PATIENT NAME: Silvia Peña Madi MR#: [id number]
[2018-02-07] MEDS: METOCLOPRAMIDE HCL 10 MG/2 ML VIAL IV PUSH SCH ×2 (14:00→22:49)
[2018-02-07] MEDS ORDERED: DIATRIZOATE MEGLUM/DIATRIZOATE SOD 9 ML CUP PO ONE (15:00)
[2018-02-07 15:02] LABS: ALBUMIN 2.9 GM/DL (3.4-5.0); DIRECT BILIRUBIN ADULT 0.2 MG/DL (0.0-0.2)
[2018-02-07 15:04] LABS: INDIRECT BILIRUBIN 0.8 MG/DL (0.0-0.8); TOTAL PROTEIN 7.4 GM/DL (6.4-8.2)
[2018-02-07] MEDS: PANTOPRAZOLE SODIUM 40 MG VIAL IV PUSH SCH (18:09)
[2018-02-07] MEDS: HYDROmorphone HCL PF 2 MG/ML VIAL IV PUSH PRN ×2 (18:10→21:57)
[2018-02-07] MEDS ORDERED: cloNIDine HCL 0.1 MG TAB PO ONE (20:00)
[2018-02-07] MEDS ORDERED: INSULIN HUMAN NPH 1,000 UNITS/10 ML VIAL SQ SCH (21:00)
--- NOTE | 2018-02-07 23:16 | RADRPT ---
EXAM DATE/TIME: 02/07/2018 22:09 [facility] COMPARISON: No previous studies available for comparison. INDICATIONS : Patient complains of nausea, vomiting and abdominal pain. IV CONTRAST: 100 cc Omnipaque 350 (iohexol) IV ORAL CONTRAST: Prescribed oral contrast ingested. RADIATION DOSE: 43.76 CTDIvol (mGy) MEDICAL HISTORY : Hypertension. Diabetes mellitus type 1. SURGICAL HISTORY : Tubal ligation. left oopharectomy ENCOUNTER: Initial ACUITY: 1 day PAIN SCALE: 5/10 LOCATION: lower quadrant abdomen TECHNIQUE: Volumetric scanning of the abdomen and pelvis was performed. Using automated exposure control and ad justment of the mA and/or kV according to patient size, radiation dose was kept as low as reasonably achievable to obtain optimal diagnostic quality images. DICOM format image data is available electro nically for review and comparison. FINDINGS: Lung bases are clear. No acute findings in the liver, spleen, adrenals, kidneys or pancreas. No calci fied gallstones. There is a fat containing ventral hernia extending inferiorly into the right and measuring at least 1 3 cm in diameter. There is no bowel obstruction. No free air or free fluid. No adenopathy. No acute bony abnormalities. CONCLUSION: 1. Fat containing ventral hernia measuring about 13 cm in diameter and containing multiple loops of s mall bowel but without incarceration or obstruction. Jim Holley MD on February 07, 2018 at 22:55 Board Certified Radiologist. This report was verified electronically.
[2018-02-08] VITALS (8 sets, daily range): BP systolic 120–216; BP diastolic 57–106; PULSE 71–114; RESP 18–20; TEMP 98–99.9; O2SAT 91–100
[2018-02-08] MEDS: ONDANSETRON HCL 4 MG/2 ML VIAL IVP PRN ×3 (01:29→20:08)
[2018-02-08] MEDS: HYDROmorphone HCL PF 2 MG/ML VIAL IV PUSH PRN ×2 (02:18→06:05)
[2018-02-08] MEDS: SODIUM CHLOR 0.9% 1000 ML INJ 1,000 ML IV SCH ×2 (04:39→14:17)
[2018-02-08] MEDS: PANTOPRAZOLE SODIUM 40 MG VIAL IV PUSH SCH ×2 (06:06→18:00)
[2018-02-08] MEDS: METOCLOPRAMIDE HCL 10 MG/2 ML VIAL IV PUSH SCH ×3 (06:10→21:56)
[2018-02-08] MEDS: INSULIN ASPART SUPPLEMENTAL SCALE SQ SCH ×4 (08:00→20:16)
[2018-02-08] MEDS: SODIUM CHLORIDE 0.9% FLUSH 10 ML FLUSH IV FLUSH SCH ×2 (09:00→21:00)
[2018-02-08] MEDS: INSULIN HUMAN NPH 1,000 UNITS/10 ML VIAL SQ SCH ×2 (09:00→20:17)
[2018-02-08 09:17] LABS: HEMATOCRIT 33.3 % (35.0-46.0); MEAN CELL VOLUME 81.3 FL (80.0-100.0); MEAN CORPUSCULAR HEMOGLOBIN 26.8 PG (27.0-34.0); MEAN PLATELET VOLUME 7.6 FL (7.0-11.0); PLATELET COUNT 251 TH/MM3 (150-450); WHITE BLOOD COUNT 13.5 TH/MM3 (4.0-11.0)
[2018-02-08 09:27] LABS: BICARBONATE 25.5 MEQ/L (21.0-32.0); CALCIUM 8.8 MG/DL (8.5-10.1); CREATININE 1.14 MG/DL (0.50-1.00)
[2018-02-08] MEDS: amLODIPine BESYLATE 5 MG TAB PO SCH (10:04)
--- NOTE | 2018-02-08 11:57 | HHI.PR ---
Subjective Remarks Follow-up for abdominal pain and hematemesis Patient continues complaint abdominal pain and stated that the only thing that works for her is IV Dilaudid and IV fentanyl. Workup has been done which does not explain her abdominal pain. She told me that this abdominal pain is new but now stated that she gets this intermittently. Patient stated that she is continuously vomiting and there has been none witnessed by the nurse. She had one episode in which she told the tech and per the tech it looked brownish. Patient did have tea today. Despite her saying that she is not able to tolerate any oral intake. After I saw her she called the nurse and she states she vomited again what looked brownish just like the tea. Objective Vitals Vital Signs Date Time Temp Pulse Resp B/P (MAP) Pulse Ox O2 Delivery O2 Flow Rate FiO2 02/08/18 08:00 98.5 94 18 216/106 (142) 94 02/08/18 04:05 98.0 71 18 132/58 (82) 95 02/07/18 23:00 98.1 96 19 158/70 (99) 97 02/07/18 21:29 87 02/07/18 19:32 98.7 95 19 211/82 (125) 96 02/07/18 18:00 98.3 84 18 162/72 (102) 94 02/07/18 16:01 81 18 165/77 (106) 91 Room Air 02/07/18 14:00 80 18 151/69 (96) 91 Room Air 02/07/18 13:45 82 18 136/68 (90) 92 Room Air 02/07/18 13:32 98.2 87 18 101/67 (78) 97 Room Air 02/07/18 12:40 I/O 02/07/18 02/07/18 02/07/18 02/08/18 02/08/18 02/08/18 07:00 15:00 23:00 07:00 15:00 23:00 Intake Total 2085 ml 100 ml 480 ml Output Total 600 ml Balance 1485 ml 100 ml 480 ml Intake Oral 0 ml 480 ml IV Total 2035 ml 100 ml Other 50 ml Output Urine Total 600 ml # Voids 1 1 2 # Bowel Movements 0 0 0 Result Diagram: 02/08/1828 02/08/18727 Objective Remarks GENERAL: in NAD CARDIOVASCULAR: Regular rate and rhythm without murmurs, gallops, or rubs. RESPIRATORY: Breath sounds equal bilaterally. No accessory muscle use. GASTROINTESTINAL: Abdomen soft, nondistended. TTP in epigastric area with no peritoneal signs. Active bowel sounds. MUSCULOSKELETAL: No cyanosis, or edema. BACK: Nontender without obvious deformity. No CVA tenderness. Medications and IVs Current Medications Sodium Chloride 1,000 ml @ 1,000 mls/hr Q1H ONCE IV Last administered on at 06:17; Start 02/07/18 at 05:34; Stop 02/07/18 at 06:33; Status DC Sodium Chloride (NS Flush) 2 ml UNSCH PRN IVF FLUSH AFTER USING IV ACCESS; Start 02/07/18 at 05:45; Stop 02/07/18 at 08:49; Status DC Metoclopramide HCl (Reglan Inj) 10 mg ONCE ONCE IV PUSH Last administered on at 06:18; Start 02/07/18 at 05:45; Stop 02/07/18 at 05:46; Status DC Diphenhydramine HCl (Benadryl Inj) 50 mg ONCE ONCE IV PUSH Last administered on 02/07/18at 06:17; Start 02/07/18 at 05:45; Stop 02/07/18 at 05:46; Status DC Pantoprazole Sodium 80 mg/ Sodium Chloride 100 ml @ 10 mls/hr CONTINUOUS IV Last administered on 02/07/18at 06:18; Start 02/07/18 at 06:00; Stop 02/07/18 at 08:43; Status DC Pantoprazole Sodium 80 mg/ Sodium Chloride 35 ml @ 420 mls/hr BOLUS ONCE IV Last administered on 02/07/18at 07:21; Start 02/07/18 at 06:00; Stop 02/07/18 at 06:04; Status DC Fentanyl Citrate (fentaNYL INJ) 25 mcg ONCE ONCE IV PUSH Last administered on 02/07/18at 06:52; Start 02/07/18 at 06:45; Stop 02/07/18 at 06:46; Status DC Insulin Human Regular (NovoLIN R INJ) 20 units ONCE ONCE IV PUSH Last administered on 02/07/18at 07:06; Start 02/07/18 at 07:00; Stop 02/07/18 at 07:01 ; Status DC Sodium Chloride 1,000 ml @ 999 mls/hr BOLUS ONCE IV Last administered on 02/07at 06:54; Start 02/07/18 at 07:00; Stop 02/07/18 at 08:00; Status DC Fentanyl Citrate (fentaNYL INJ) 50 mcg ONCE STAT IV PUSH Last administered on 02/07/18at 08:22; Start 02/07/18 at 08:11; Stop 02/07/18 at 08:12; Status DC Sodium Chloride 1,000 ml @ 100 mls/hr Q10H IV Last administered on 02/07/18at 13:52; Start 02/07/18 at 08:39 Sodium Chloride (NS Flush) 2 ml UNSCH PRN IV FLUSH FLUSH AFTER USING IV ACCESS ; Start 02/07/18 at 08:45 Sodium Chloride (NS Flush) 2 ml BID IV FLUSH Last administered on 02/08/18at 09: 00; Start 02/07/18 at 09:00 Acetaminophen (Tylenol) 650 mg Q4H PRN PO TEMP > 100.4 or pain; Start 02/07/18 at 08:45 Ondansetron HCl (Zofran Inj) 4 mg Q6H PRN IVP NAUSEA OR VOMITING Last administered on 02/08/18at 11:25; Start 02/07/18 at 08:45 Naloxone HCl (Narcan Inj) 0.4 mg UNSCH PRN IV PUSH SEE LABEL COMMENTS; Start at 08:45 Pantoprazole Sodium (Protonix Inj) 40 mg Q12H IV PUSH Last administered on 02/08at 06:06; Start 02/07/18 at 18:00 Dextrose (D50w (Vial) Inj) 50 ml UNSCH PRN IV PUSH HYPOGLYCEMIA-SEE COMMENTS; Start 02/07/18 at 08:45 Glucagon (Glucagon Inj) 1 mg UNSCH PRN OTHER HYPOGLYCEMIA-SEE COMMENTS; Start 02/07/18 at 08:45 Insulin Aspart (NovoLOG SUPPLEMENTAL SCALE) 1 ACHS SLIDING SCALE SQ Last administered on 02/07/18at 20:35; Start 02/07/18 at 12:00 Morphine Sulfate (Morphine Inj) 1 mg Q3H PRN IV PUSH pain; Start 02/07/18 at 12 :15; Stop 02/07/18 at 12:24; Status DC Hydromorphone HCl (Dilaudid Pf Inj) 0.5 mg Q4H PRN IV PUSH pain Last administered on 02/08/18at 06:05; Start 02/07/18 at 12:30; Stop 02/08/18 at 08:34 ; Status DC Insulin Human NPH (NovoLIN N INJ) 68 units BID SQ Last administered on at 20:35; Start 02/07/18 at 21:00; Stop 02/08/18 at 08:35; Status DC Metoclopramide HCl (Reglan Inj) 10 mg Q8HR IV PUSH Last administered on at 06:10; Start 02/07/18 at 14:00 Miscellaneous Information ALL NURSING DEPARTME... UNSCH PRN .XX SEE LABEL COMMENTS; Start 02/07/18 at 13:27; Stop 02/08/18 at 13:26 Diatrizoate Meglum/ Diatrizoate Sod ( Gastroview Liq) 18 ml ONCE ONCE PO Last administered on 02/07/18at 19:41; Start 02/07/18 at 15:00; Stop 02/07/18 at 15:01; Status DC Clonidine (Catapres) 0.1 mg ONCE ONCE PO Last administered on 02/07/18at 20:34 ; Start 02/07/18 at 20:00; Stop 02/07/18 at 20:24; Status DC Iohexol (Omnipaque 350 Inj) 100 ml STK-MED ONCE IVCONTRAST Last administered on 02/07/18at 22:41; Start 02/07/18 at 08:42; Stop 02/07/18 at 22:40; Status DC Insulin Human NPH (NovoLIN N INJ) 75 units BID SQ Last administered on at 09:00; Start 02/08/18 at 09:00 Amlodipine Besylate (Norvasc) 5 mg DAILY PO Last administered on 02/08/18at 10: 04; Start 02/08/18 at 10:00 A/P Assessment and Plan This is a 47-year-old female with uncontrolled type 2 diabetes insulin- dependent who presented abdominal pain and hematemesis Hematemesis and abdominal pain per patient -There has been none witnessed during her hospitalization. She had an EGD done which showed gastritis, esophagitis, hiatal hernia. She also had biopsy obtained. -Continue with PPI and avoid NSAIDs. Hemoglobin has been stable. -Abdominal pain seems to be more chronic. CT scan of the abdomen showed ventral hernia with no small bowel obstruction or incarceration. Questionable drug-seeking behavior since she stated that only IV fentanyl and IV Dilaudid works for her with no diagnosis to justify excessive use of pain medication. -Patient told that this may be due to her gastroparesis and to avoid pain medication and marijuana because this can worsen gastroparesis. History of bilateral DVTs and PE -Patient is noncompliant. Since there is no active bleeding and hemoglobin stable. Will restart Eliquis. Gastroparesis -Need to controlled diabetes. There has only been 2 episodes of questionable emesis that looks like tea otherwise no other witnessed episodes of emesis as patient stated. Patient stated that she is vomiting constantly. There is no emesis noted at the bedside when I saw patient. -We will need to avoid marijuana and pain medication. -Continue with Reglan. -Management per GI. Ventral hernia -Hernia is not incarcerated and there are no small bowel obstruction. Patient is morbidly obese with a BMI of 73.4 and has unclear controlled diabetes. She is not a good candidate for surgery due to uncontrolled diabetes and being morbidly obese especially when she is asymptomatic from this. DM- insulin dependent- BGL 478 on arrival -Most likely patient has uncontrolled diabetes. Increase home insulin. Placed on insulin sliding scale. Adjust accordingly. Diabetic diet. HTN -On lisinopril. Will start amlodipine. Renal sufficiency -Creatinine 1.1 with GFR of 53. This may be her baseline. She does have uncontrolled hypertension and diabetes which makes her prone to nephropathy. - Avoid nephrotoxins. Avoid NSAIDs. Strict ins and out. Peripheral neuropathy -Due to uncontrolled diabetes. Patient will need to control her diabetes. Education given. Marijuana use -This is chronic. Recommend to not use marijuana especially when she has gastroparesis. Marijuana can worsen gastroparesis. DVT prophylaxis -SCDs. Restart Eliquis. Discharge Planning Once cleared by GI patient can be discharged home. Discussed case with patient's nurse and patient. Marla Mills MD Feb 08, 2018 11:57
--- NOTE | 2018-02-08 17:39 | HHI.GIFU ---
Subjective Remarks Pt lying in bed on her side States abdominal and back pain Also complaining of multiple episodes of emesis, has not been witnessed by techs or RNs Pt states she can not take oral pain medication because of the emesis Requesting IV Dilaudid (Shaunna Adan) Objective Vitals I&O Vital Signs Date Time Temp Pulse Resp B/P (MAP) Pulse Ox O2 Delivery O2 Flow Rate FiO2 02/08/18 08:00 98.5 94 18 216/106 (142) 94 02/08/18 04:05 98.0 71 18 132/58 (82) 95 02/07/18 23:00 98.1 96 19 158/70 (99) 97 02/07/18 21:29 87 02/07/18 19:32 98.7 95 19 211/82 (125) 96 02/07/18 18:00 98.3 84 18 162/72 (102) 94 I/O 02/07/18 02/07/18 02/07/18 02/08/18 02/08/18 02/08/18 07:00 15:00 23:00 07:00 15:00 23:00 Intake Total 2085 ml 100 ml 480 ml Output Total 600 ml Balance 1485 ml 100 ml 480 ml Intake Oral 0 ml 480 ml IV Total 2035 ml 100 ml Other 50 ml Output Urine Total 600 ml # Voids 1 1 2 # Bowel Movements 0 0 0 Laboratory Laboratory Tests Test 02/07/18 21:42 02/08/18 07:28 Hemoglobin 11.6 11.0 White Blood Count 13.5 Red Blood Count 4.10 Hematocrit 33.3 Mean Corpuscular Volume 81.3 Mean Corpuscular Hemoglobin 26.8 Mean Corpuscular Hemoglobin Concent 33.0 Red Cell Distribution Width 15.0 Platelet Count 251 Mean Platelet Volume 7.6 Blood Urea Nitrogen 29 Creatinine 1.14 Random Glucose 317 Calcium Level 8.8 Sodium Level 143 Potassium Level 3.5 Chloride Level 107 Carbon Dioxide Level 25.5 Anion Gap 11 Estimat Glomerular Filtration Rate 51 Imaging Last Impressions Abdomen/Pelvis CT 02/07/18 0000 Signed Impressions: Service Date/Time: Wednesday, February 07, 2018 22:09 - CONCLUSION: 1. Fat containing ventral hernia measuring about 13 cm in diameter and containing multiple loops of small bowel but without incarceration or obstruction. Jim Holley MD Physical Exam HEENT:Normocephalic; atraumatic CHEST: Even/unlabored CARDIAC: RRR ABDOMEN: Obese, soft, nontender, bowel sounds active SKIN: Normal; no rash; no jaundice. SURVEILLANCE MONITOR: No focal deficits; alert and oriented times three. (Shaunna Adan) Assessment and Plan Plan Assessment: - Coffee ground emesis with reports of hematemesis- began at 2 am this morning and reports multiple episodes. Hemoccult on emesis done in ER (+). H/H stable on admission. Pt denies history of GIB. Rare ETOH. Daily marijuana. Denies NSAIDs. Recently on Eliquis for bilateral DVT and history of PE- has not taken ' in 4-5 days. Associated epigastric pain that began yesterday, diarrhea since yesterday, denies melena, hematochezia, reports intermittent vomiting for the past couple days. (+) Fever, chills. Recent URI, did not take meds. Unsure of sick contacts, with vomiting but also has gastroparesis - Gastroparesis- takes Reglan as needed- not currently followed by a GI doctor, recently moved to area - DM- insulin dependent- BGL 478 on arrival - HTN- per attending - History of PE 8 years ago, DVT a few months ago- on Eliquis, has not taken in 4-5 days - ESTEVAN- ? Dehydration (02/08) --> Pt on her side states continued abdominal and back pain, requesting IV Dilaudid. States multiple episodes of emesis, has not been witnessed by RNs or techs. S/P EGD yesterday for complaints of hematemesis --> Normal duodenum. Biopsy to r/o celiac dx. Gastritis. Esophagitis. Hiatal hernia. LFTs and lipase WNL. CT abdomen and pelvis --> Fat containing ventral hernia measuring 13 cm in diameter and containing multiple loops of small bowel but without incarceration or obstruction. BGL uncontrolled. H/H stable Plan: - NGT to [facility] for intractable vomiting - HIDA scan - Protonix - Reglan PRN nausea - Eliquis restarted - EGD biopsy pending - JEFF - Further recommendations based on clinical course Pt has been seen and examined by myself and Dr. Casillas and this note is written on her behalf (Shaunna Adan) Physician Comments seen, examined agree with above ngt if n,v-will wait for now hida scan (Binta Casillas MD) Shaunna Adan Feb 08, 2018 17:39 Binta Casillas MD Feb 08, 2018 19:47
[2018-02-08] MEDS: cloNIDine HCL 0.1 MG TAB PO SCH ×2 (18:15→21:00)
[2018-02-08] MEDS ORDERED: cloNIDine HCL 0.1 MG TAB PO PRN (19:30)
--- NOTE | 2018-02-08 19:39 | RADRPT ---
EXAM DATE/TIME: 02/08/2018 19:03 [facility] COMPARISON: No previous studies available for comparison. INDICATIONS : Fall, complains of right hip pain. MEDICAL HISTORY : Diabetes mellitus type II. Hypertension SURGICAL HISTORY : Hysterectomy. ENCOUNTER: Initial ACUITY: 1 day PAIN SCORE: 10/10 LOCATION: Right hip FINDINGS: Examination of the right hip was performed with AP Pelvis. The primary and secondary trabecular prasanna jacques of the femoral neck is intact. The hip joint is of normal width without significant sclerosis or bony hypertrophy. The acetabulum is grossly intact. CONCLUSION: Negative for fracture. Mild degenerative changes. Michele Arreola MD FACR on February 08, 2018 at 19:36 Board Certified Radiologist. This report was verified electronically.
--- NOTE | 2018-02-08 19:39 | RADRPT ---
EXAM DATE/TIME: 02/08/2018 19:05 [facility] COMPARISON: No previous studies available for comparison. INDICATIONS : Fall, complains of right knee pain. MEDICAL HISTORY : Hypertension. Diabetes mellitus type II. SURGICAL HISTORY : Hysterectomy. ENCOUNTER: Initial ACUITY: 1 day PAIN SCORE: 10/10 LOCATION: Right knee FINDINGS: Four view examination of the right knee demonstrates no evidence of fracture or dislocation. Bony mi neralization is normal. The articular surfaces are intact. The suprapatellar soft tissues have a no rmal configuration. CONCLUSION: Negative for fracture or dislocation. Follow up in 7-10 days is suggested if symptoms persist. Michele Arreola MD FACR on February 08, 2018 at 19:36 Board Certified Radiologist. This report was verified electronically.
--- NOTE | 2018-02-08 19:40 | RADRPT ---
EXAM DATE/TIME: 02/08/2018 19:07 [facility] COMPARISON: No previous studies available for comparison. INDICATIONS : Fall, complains of back pain. MEDICAL HISTORY : Hypertension. Diabetes mellitus type II. SURGICAL HISTORY : Hysterectomy. ENCOUNTER: Initial ACUITY: 1 day PAIN SCORE: 10/10 LOCATION: Lumbar FINDINGS: There is no evidence of acute compression. There is minimal loss of disc space at L4-5 and L5-S1. S acrum appears intact. CONCLUSION: Negative for fracture. Michele Arreola MD FACR on February 08, 2018 at 19:37 Board Certified Radiologist. This report was verified electronically.
[2018-02-08] MEDS: APIXABAN 5 MG TABLET PO SCH (21:00)
[2018-02-09] VITALS (7 sets, daily range): BP systolic 102–206; BP diastolic 53–116; PULSE 71–105; RESP 17–21; TEMP 97.9–99.8; O2SAT 91–97
[2018-02-09] MEDS: SODIUM CHLOR 0.9% 1000 ML INJ 1,000 ML IV SCH ×2 (00:54→10:39)
[2018-02-09] MEDS: ONDANSETRON HCL 4 MG/2 ML VIAL IVP PRN ×3 (02:00→17:35)
[2018-02-09] MEDS: METOCLOPRAMIDE HCL 10 MG/2 ML VIAL IV PUSH SCH ×2 (05:03→13:35)
[2018-02-09] MEDS: PANTOPRAZOLE SODIUM 40 MG VIAL IV PUSH SCH ×2 (05:07→17:34)
[2018-02-09 07:09] LABS: HEMATOCRIT 34.8 % (35.0-46.0); HEMOGLOBIN 11.3 GM/DL (11.6-15.3); MEAN CELL VOLUME 80.9 FL (80.0-100.0); MEAN CORPUSCULAR HEMOGLOBIN 26.2 PG (27.0-34.0); MEAN CORPUSCULAR HGB CONC 32.4 % (32.0-36.0); MEAN PLATELET VOLUME 7.3 FL (7.0-11.0); PLATELET COUNT 214 TH/MM3 (150-450); RED BLOOD COUNT 4.31 MIL/MM3 (4.00-5.30); RED CELL DISTRIBUTION WIDTH 14.6 % (11.6-17.2); WHITE BLOOD COUNT 8.9 TH/MM3 (4.0-11.0)
[2018-02-09 07:45] LABS: BICARBONATE 24.9 MEQ/L (21.0-32.0); CALCIUM 8.9 MG/DL (8.5-10.1); CREATININE 1.02 MG/DL (0.50-1.00)
[2018-02-09] MEDS: amLODIPine BESYLATE 5 MG TAB PO SCH (07:53)
[2018-02-09] MEDS: cloNIDine HCL 0.1 MG TAB PO SCH (07:53)
[2018-02-09] MEDS: SODIUM CHLORIDE 0.9% FLUSH 10 ML FLUSH IV FLUSH SCH (07:53)
[2018-02-09] MEDS: INSULIN ASPART SUPPLEMENTAL SCALE SQ SCH ×3 (08:00→17:00)
[2018-02-09] MEDS: APIXABAN 5 MG TABLET PO SCH (08:04)
[2018-02-09] MEDS ORDERED: POTASSIUM CHLORIDE 20 MEQ CONTROLLED RELEASE TAB PO ONE (11:30)
[2018-02-09] MEDS ORDERED: amLODIPine BESYLATE 5 MG TAB PO ONE (12:00)
[2018-02-09] MEDS: hydrALAZINE HCL 25 MG TAB PO SCH ×2 (12:12→12:33)
[2018-02-09] MEDS ORDERED: LIDOCAINE HCL 5% PATCH T-DERMAL SCH ×2 (12:30→13:00)
--- NOTE | 2018-02-09 13:59 | HHI.PR ---
Subjective Remarks Follow-up for abdominal pain, nausea, questionable emesis, and fall not witnessed Patient refused the HIDA scan earlier. She is in agreement now to have a HIDA scan. Patient stated that she feels better so she felt like she did not need a HIDA scan. I told patient since this has been an ongoing problem and from the medical records it looks like she was seen here in October for the exact same problem that she should just get a HIDA scan to make sure. Patient stated nausea has improved. Patient denied any emesis. There has also been no episodes of emesis witnessed during hospitalization. Patient had questionable one episode of emesis but she gave the nurse a bag full of tea that was given to her. She stated that her nausea is intermittent. Patient stated that her abdominal pain is more like her stomach is squeezing and that is intermittent. Patient stated that her pain now is located in her low mid to lower back from the fall yesterday. She denies any lower extremity or upper extremity weakness. She denies any fecal or urinary incontinence. She denies any headache, visual changes, focal neurological deficit. I also asked patient if she was taking her insulin and home medication as directed. She stated that she could not remember. I told patient that her blood sugars are better with insulin and that when she came in her blood sugars were in the 400. I told her from her trend in the hospital most likely she was not taking insulin at home. Patient continued to say that she does not remember. She also stated that she has not been taking her medication because she feels nauseous. During hospitalization patient was able take oral medication without any difficulty. She picks and chooses what medication she wants to take. She refused to take her Eliquis, but took all her other oral medication. Patient's nurse at the bedside during the interview. Objective Vitals Vital Signs Date Time Temp Pulse Resp B/P (MAP) Pulse Ox O2 Delivery O2 Flow Rate FiO2 02/09/18 10:50 97.9 104 18 183/116 (138) 94 02/09/18 06:50 98.0 91 17 206/105 (138) 96 02/09/18 04:00 83 02/09/18 04:00 98.7 79 20 102/53 (69) 95 02/09/18 03:30 186/71 (109) 02/09/18 00:00 99.8 71 21 109/57 (74) 91 02/09/18 00:00 84 02/08/18 20:02 99.9 85 18 120/57 (78) 91 02/08/18 20:00 87 02/08/18 18:50 98.6 102 18 193/88 (123) 93 02/08/18 17:50 98.5 105 18 208/95 (132) 100 02/08/18 16:50 98.2 102 18 196/92 (126) 96 02/08/18 15:50 98.0 114 20 208/95 (132) 95 I/O 02/08/18 02/08/18 02/08/18 02/09/18 02/09/18 02/09/18 07:00 15:00 23:00 07:00 15:00 23:00 Intake Total 480 ml Balance 480 ml Intake Oral 480 ml # Voids 2 3 # Bowel Movements 0 1 Result Diagram: 02/09/18 0659 02/09/18 0659 Objective Remarks GENERAL: in NAD CARDIOVASCULAR: Regular rate and rhythm without murmurs, gallops, or rubs. RESPIRATORY: Breath sounds equal bilaterally. No accessory muscle use. GASTROINTESTINAL: Abdomen soft, nondistended. mild TTP in epigastric area with no peritoneal signs. Active bowel sounds. MUSCULOSKELETAL: No cyanosis, or edema. BACK: + TTP of the mid to lower back more on the muscles. No muscle spasms. No ecchymosis noted. Obvious deformity. No CVA tenderness. 5 out of 5 upper and lower extremity strength. Earlier before I went into the patient and saw her from the hallway patient was sitting up in her bed in no distress watching TV. NEURO: AAO X 3. Cranial to the 12 is intact. Motor and sensation grossly intact. Coordination is also intact. Medications and IVs Current Medications Sodium Chloride 1,000 ml @ 1,000 mls/hr Q1H ONCE IV Last administered on at 06:17; Start 02/07/18 at 05:34; Stop 02/07/18 at 06:33; Status DC Sodium Chloride (NS Flush) 2 ml UNSCH PRN IVF FLUSH AFTER USING IV ACCESS; Start 02/07/18 at 05:45; Stop 02/07/18 at 08:49; Status DC Metoclopramide HCl (Reglan Inj) 10 mg ONCE ONCE IV PUSH Last administered on at 06:18; Start 02/07/18 at 05:45; Stop 02/07/18 at 05:46; Status DC Diphenhydramine HCl (Benadryl Inj) 50 mg ONCE ONCE IV PUSH Last administered on 02/07/18at 06:17; Start 02/07/18 at 05:45; Stop 02/07/18 at 05:46; Status DC Pantoprazole Sodium 80 mg/ Sodium Chloride 100 ml @ 10 mls/hr CONTINUOUS IV Last administered on 02/07/18at 06:18; Start 02/07/18 at 06:00; Stop 02/07/18 at 08:43; Status DC Pantoprazole Sodium 80 mg/ Sodium Chloride 35 ml @ 420 mls/hr BOLUS ONCE IV Last administered on 02/07/18at 07:21; Start 02/07/18 at 06:00; Stop 02/07/18 at 06:04; Status DC Fentanyl Citrate (fentaNYL INJ) 25 mcg ONCE ONCE IV PUSH Last administered on 02/07/18at 06:52; Start 02/07/18 at 06:45; Stop 02/07/18 at 06:46; Status DC Insulin Human Regular (NovoLIN R INJ) 20 units ONCE ONCE IV PUSH Last administered on 02/07/18at 07:06; Start 02/07/18 at 07:00; Stop 02/07/18 at 07:01 ; Status DC Sodium Chloride 1,000 ml @ 999 mls/hr BOLUS ONCE IV Last administered on 02/07at 06:54; Start 02/07/18 at 07:00; Stop 02/07/18 at 08:00; Status DC Fentanyl Citrate (fentaNYL INJ) 50 mcg ONCE STAT IV PUSH Last administered on 02/07/18at 08:22; Start 02/07/18 at 08:11; Stop 02/07/18 at 08:12; Status DC Sodium Chloride 1,000 ml @ 100 mls/hr Q10H IV Last administered on 02/09/18at 00:54; Start 02/07/18 at 08:39 Sodium Chloride (NS Flush) 2 ml UNSCH PRN IV FLUSH FLUSH AFTER USING IV ACCESS ; Start 02/07/18 at 08:45 Sodium Chloride (NS Flush) 2 ml BID IV FLUSH Last administered on 02/09/18at 07: 53; Start 02/07/18 at 09:00 Acetaminophen (Tylenol) 650 mg Q4H PRN PO TEMP > 100.4 or pain; Start 02/07/18 at 08:45 Ondansetron HCl (Zofran Inj) 4 mg Q6H PRN IVP NAUSEA OR VOMITING Last administered on 02/09/18at 07:52; Start 02/07/18 at 08:45 Naloxone HCl (Narcan Inj) 0.4 mg UNSCH PRN IV PUSH SEE LABEL COMMENTS; Start at 08:45 Pantoprazole Sodium (Protonix Inj) 40 mg Q12H IV PUSH Last administered on 02/09at 05:07; Start 02/07/18 at 18:00 Dextrose (D50w (Vial) Inj) 50 ml UNSCH PRN IV PUSH HYPOGLYCEMIA-SEE COMMENTS; Start 02/07/18 at 08:45 Glucagon (Glucagon Inj) 1 mg UNSCH PRN OTHER HYPOGLYCEMIA-SEE COMMENTS; Start 02/07/18 at 08:45 Insulin Aspart (NovoLOG SUPPLEMENTAL SCALE) 1 ACHS SLIDING SCALE SQ Last administered on 02/08/18at 20:16; Start 02/07/18 at 12:00 Morphine Sulfate (Morphine Inj) 1 mg Q3H PRN IV PUSH pain; Start 02/07/18 at 12 :15; Stop 02/07/18 at 12:24; Status DC Hydromorphone HCl (Dilaudid Pf Inj) 0.5 mg Q4H PRN IV PUSH pain Last administered on 02/08/18at 06:05; Start 02/07/18 at 12:30; Stop 02/08/18 at 08:34 ; Status DC Insulin Human NPH (NovoLIN N INJ) 68 units BID SQ Last administered on at 20:35; Start 02/07/18 at 21:00; Stop 02/08/18 at 08:35; Status DC Metoclopramide HCl (Reglan Inj) 10 mg Q8HR IV PUSH Last administered on at 05:03; Start 02/07/18 at 14:00 Miscellaneous Information ALL NURSING DEPARTME... UNSCH PRN .XX SEE LABEL COMMENTS; Start 02/07/18 at 13:27; Stop 02/08/18 at 13:26; Status DC Diatrizoate Meglum/ Diatrizoate Sod (Md Snowden Liq) 18 ml ONCE ONCE PO Last administered on 02/07/18at 19:41; Start 02/07/18 at 15:00; Stop 02/07/18 at 15:01; Status DC Clonidine (Catapres) 0.1 mg ONCE ONCE PO Last administered on 02/07/18at 20:34 ; Start 02/07/18 at 20:00; Stop 02/07/18 at 20:24; Status DC Iohexol (Omnipaque 350 Inj) 100 ml STK-MED ONCE IVCONTRAST Last administered on 02/07/18at 22:41; Start 02/07/18 at 08:42; Stop 02/07/18 at 22:40; Status DC Insulin Human NPH (NovoLIN N INJ) 75 units BID SQ Last administered on 20:17; Start 02/08/18 at 09:00; Status Future Hold Amlodipine Besylate (Norvasc) 5 mg DAILY PO Last administered on 02/09/18at 07: 53; Start 02/08/18 at 10:00; Stop 02/09/18 at 11:41; Status DC Apixaban (Eliquis) 5 mg BID PO ; Start 02/08/18 at 21:00 Clonidine (Catapres) 0.1 mg Q12HR PO Last administered on 02/09/18at 07:53; Start 02/08/18 at 18:15 Clonidine (Catapres) 0.1 mg Q6H PRN PO SBP>180 or DBP>100 Last administered on 02/09/18at 03:31; Start 02/08/18 at 19:30 Potassium Chloride (KCl) 20 meq ONCE ONCE PO ; Start 02/09/18 at 11:30; Stop at 11:31; Status DC Amlodipine Besylate (Norvasc) 5 mg ONCE ONCE PO Last administered on at 12:12; Start 02/09/18 at 12:00; Stop 02/09/18 at 12:01; Status DC Amlodipine Besylate (Norvasc) 10 mg DAILY PO ; Start 02/10/18 at 09:00 Hydralazine HCl (Apresoline) 25 mg Q8HR PO Last administered on 3/25/18at 12:12 ; Start 02/09/18 at 12:00 Lidocaine HCl (Lidoderm 5% Patch.12 Hr) 1 patch DAILY T-DERMAL ; Start 02/09/18 at 12:30; Stop 02/09/18 at 12:30; Status DC Lidocaine HCl (Lidoderm 5% Patch.12 Hr) 1 patch Q24H T-DERMAL ; Start 02/09/18 at 13:00 Miscellaneous Information 1 Q24H T-DERMAL ; Start 02/10/18 at 01:00 A/P Assessment and Plan This is a 47-year-old female with uncontrolled type 2 diabetes insulin- dependent who presented abdominal pain and hematemesis Hematemesis and abdominal pain reported per patient -NO episode of emesis witnessed during her hospitalization or any evidence of it. -s/p EGD done which showed gastritis, esophagitis, hiatal hernia. She also had biopsy obtained.CT scan of the abdomen showed ventral hernia with no small bowel obstruction or incarceration. -Continue with PPI and avoid NSAIDs. Hemoglobin has been stable. -Patient stated that symptoms are improving in which she did not want to get a HIDA scan. I recommended a HIDA scan and patient stated she would get it. Patient has drug-seeking behavior in which she stated the only thing that works for her is IV fentanyl and IV Dilaudid. -In terms of abdominal pain and emesis she stated that this has been a chronic problem and it is intermittent. -Pending HIDA scan. History of bilateral DVTs and PE -Patient is noncompliant. Since there is no active bleeding and hemoglobin stable. Eliquis was started but patient is refusing despite the benefits. Gastroparesis -Need to controlled diabetes. -Extensive education given to patient about diabetes control, avoidance of marijuana and pain medication to improve her gastroparesis. -At the moment does not seem to be severe since she has no episodes of emesis during hospitalization. -On Reglan. Ventral hernia -Hernia is not incarcerated and there are no small bowel obstruction. Patient is morbidly obese with a BMI of 73.4 and has unclear controlled diabetes. She is not a good candidate for surgery due to uncontrolled diabetes and being morbidly obese especially when she is asymptomatic from this. DM- insulin dependent- BGL 478 on arrival -Secondary to noncompliance. Patient does not take home her insulin. She does respond to insulin. Extensive education given on compliance with medication and preventing macrovascular and microvascular disease from uncontrolled diabetes. HTN -Uncontrolled and very labile. I think part of this may have to do with how the blood pressure is being taken. Patient is morbidly obese with a BMI of 63.3. -Patient on lisinopril, clonidine and amlodipine. Will increase amlodipine and add hydrochlorothiazide. Renal sufficiency -Creatinine 1.1 with GFR of 53. This may be her baseline. She does have uncontrolled hypertension and diabetes which makes her prone to nephropathy. - Avoid nephrotoxins. Avoid NSAIDs. Strict ins and out. Peripheral neuropathy -Due to uncontrolled diabetes. Patient will need to control her diabetes. Education given. Marijuana use -This is chronic. Recommend to not use marijuana especially when she has gastroparesis. Marijuana can worsen gastroparesis. Unwitnessed fall on 02/08 -Patient cannot give the exact details of her fall. She called the medical secretary receptionist for the nurse to come in and she was found the ground in no distress. Patient complained of right knee hip and back pain. X-ray was taken all negative. -Today she only complains about her back pain but she is very comfortable in the bed and sitting in the bed. Will give Lidoderm patch and continue with Tylenol as needed for pain. Noncompliance -Patient is noncompliance with home treatment. Extensive education given to the patient. DVT prophylaxis -SCDs. Eliquis restarted but patient is refusing. Discharge Planning If HIDA scan is negative and blood pressure better control patient can be discharged to home. Marla Mills MD Feb 09, 2018 13:59
[2018-02-09] MEDS ORDERED: cloNIDine HCL 0.1 MG TAB PO SCH (14:00)
[2018-02-09] MEDS ORDERED: LIDO1ADH4 T-DERMAL (15:55)
[2018-02-09] MEDS ORDERED: INSU100V3 SQ (15:55)
[2018-02-09] MEDS ORDERED: AMLO10 PO (15:55)
[2018-02-09] MEDS ORDERED: HYDR-3799 PO (15:55)
[2018-02-09] MEDS ORDERED: CLON.1 PO (15:55)
[2018-02-09] MEDS ORDERED: APIX5TAB PO (15:55)
--- NOTE | 2018-02-09 16:00 | HHI.DCPOC ---
Discharge Care Plan Diagnosis: (1) Gastroparesis due to DM (2) Noncompliance (3) Hypertension (4) Diabetes mellitus, insulin dependent (IDDM), uncontrolled Goals to Promote Your Health * To prevent worsening of your condition and complications * To maintain your health at the optimal level Directions to Meet Your Goals Take your medications as prescribed Follow your dietary instruction Follow activity as directed Keep your appointments as scheduled Take your immunizations and boosters as scheduled If your symptoms worsen call your PCP, if no PCP go to Urgent Care Center or Emergency Room Smoking is Dangerous to Your Health. Avoid second hand smoke Call the 24-hour hour crisis hotline for domestic abuse at Marla Mills MD Feb 09, 2018 16:00
[2018-02-09] MEDS ORDERED: SINCALIDE 5 MCG/5 ML VIAL IV ONE (16:20)
--- NOTE | 2018-02-09 16:56 | RADRPT ---
EXAM DATE/TIME: 02/09/2018 14:07 [facility] COMPARISON: CT ABDOMEN & PELVIS W CONTRAST, February 07, 2018, 22:09. INDICATIONS : Abdominal pain with vomiting for one day. DOSE: 4.2 mCi Tc99m Mebrofenin IV MEDICATION: 2.5 mcg Cholecystokinin IV; No symptomatic response. Cholecystokinin was administered by slow infusion over 8 minutes beginning at 60 minutes. MEDICAL HISTORY : Diabetes mellitus type 2. Gastroparesis. SURGICAL HISTORY : Tubal ligation. section. ENCOUNTER: Initial ACUITY: 1 day PAIN SCALE: 3/10 LOCATION: Right upper quadrant TECHNIQUE: Following the intravenous administration of radiotracer, dynamic sequential image were performed with continuous acquisition. Time-activity curves were generated. FINDINGS: HEPATIC KINETICS: There is prompt uptake of radiotracer in the liver. No focal defects are seen. There is normal rate of washout from the hepatic parenchyma. BILIARY CLEARANCE: Activity is first seen in the extrahepatic biliary system at 20 minutes. There is normal excretion i nto the small bowel. GALLBLADDER: Activity is first seen in the gallbladder at 20 minutes. POST CHOLECYSTOKININ: After Cholecystokinin administration, there no significant emptying of the gallbladder. Common bile duct kinetics are normal and there is no evidence of biliary obstruction. BILIARY ENTERIC REFLUX: None observed. CLINICAL: The patient was asymptomatic after Cholecystokinin administration. CONCLUSION: 1. No sign of biliary obstruction. 2. Blunted response to CCK Johny Patricio MD on February 09, 2018 at 16:51 Board Certified Radiologist. This report was verified electronically.
[2018-02-09] MEDS ORDERED: REGL10TA5 PO (17:44)
[2018-02-09] MEDS ORDERED: NOVONP2 SQ (17:44)
--- NOTE | 2018-02-09 17:47 | HHI.DS ---
Discharge Summary Admission Date Feb 07, 2018 at 08:41 Admitting Diagnosis GI bleed Brief History - From Admission This is a 47-year-old female history of type 2 diabetes insulin-dependent and gastroparesis who presented with abdominal pain 24 hours ago. She stated that last night she had vomiting with blood. Blood describes coffee-ground. Patient stated that she has been vomiting since then. I spoke to nurse and patient's nurse stated that she has not witnessed any emesis. At the bedside patient only had some clear saliva in her emesis bag. During the interview the patient she was found sound asleep until I woke her up which she complained of severe pain. Patient stated that the only thing that works for her is IV fentanyl and Dilaudid. I asked the patient had this pain before she initially said no. But later on the interview she said yes but only fentanyl Dilaudid works for her. Patient does have a history of gastroparesis in which she takes reglan. Patient also smokes marijuana on a daily basis. She denies any blood in her stools. She stated that her stools are loose. Patient has not been taking her Eliquis for the past 4-5 days. She did not say why she did not take it. Patient stated that she had a EGD done July 2017 at [facility]. She said that she had an esophageal dilatation. All other review of system reviewed and negative. CBC/BMP: 02/09/18 0659 02/09/18 0659 Significant Findings Laboratory Tests Test 02/07/18 05:30 02/07/18 07:55 02/07/18 14:25 02/07/18 21:42 White Blood Count 15.2 TH/MM3 (4.0-11.0) Mean Corpuscular Hemoglobin 26.9 PG (27.0-34.0) Neutrophils (%) (Auto) 92.8 % (16.0-70.0) Lymphocytes (%) (Auto) 4.5 % (9.0-44.0) Neutrophils # (Auto) 14.1 TH/MM3 (1.8-7.7) Lymphocytes # (Auto) 0.7 TH/MM3 (1.0-4.8) Blood Urea Nitrogen 20 MG/DL (7-18) Creatinine 1.11 MG/DL (0.50-1.00) Random Glucose 478 MG/DL (74-106) Estimat Glomerular Filtration Rate 53 ML/MIN (>89) Lipase 67 U/L (73-393) 53 U/L (73-393) Urine Protein 300 mg/dL (NEG-TRACE) Urine Glucose (UA) 1000 mg/dL (NEG) Urine Ketones 80 mg/dL (NEG) Urine Occult Blood MOD (NEG) Urine RBC 5 /hpf (0-3) Urine Bacteria OCC /hpf (NONE) Hemoglobin 11.1 GM/DL (11.6-15.3) Aspartate Amino Transf (AST/SGOT) 8 U/L (15-37) Albumin 2.9 GM/DL (3.4-5.0) Test 02/08/18 07:28 02/09/18 06:59 White Blood Count 13.5 TH/MM3 (4.0-11.0) Hemoglobin 11.0 GM/DL (11.6-15.3) 11.3 GM/DL (11.6-15.3) Hematocrit 33.3 % (35.0-46.0) 34.8 % (35.0-46.0) Mean Corpuscular Hemoglobin 26.8 PG (27.0-34.0) 26.2 PG (27.0-34.0) Blood Urea Nitrogen 29 MG/DL (7-18) 25 MG/DL (7-18) Creatinine 1.14 MG/DL (0.50-1.00) 1.02 MG/DL (0.50-1.00) Random Glucose 317 MG/DL (74-106) 129 MG/DL (74-106) Estimat Glomerular Filtration Rate 51 ML/MIN (>89) 58 ML/MIN (>89) Potassium Level 3.3 MEQ/L (3.5-5.1) Chloride Level 109 MEQ/L (98-107) PE at Discharge GENERAL: in NAD CARDIOVASCULAR: Regular rate and rhythm without murmurs, gallops, or rubs. RESPIRATORY: Breath sounds equal bilaterally. No accessory muscle use. GASTROINTESTINAL: Abdomen soft, nondistended. mild TTP in epigastric area with no peritoneal signs. Active bowel sounds. MUSCULOSKELETAL: No cyanosis, or edema. BACK: + TTP of the mid to lower back more on the muscles. No muscle spasms. No ecchymosis noted. Obvious deformity. No CVA tenderness. 5 out of 5 upper and lower extremity strength. Earlier before I went into the patient and saw her from the hallway patient was sitting up in her bed in no distress watching TV. NEURO: AAO X 3. Cranial to the 12 is intact. Motor and sensation grossly intact. Coordination is also intact. Pt Condition on Discharge: Stable Discharge Disposition: Discharge Home Discharge Instructions DIET: Follow Instructions for: Heart Healthy Diet, Diabetic Diet Activities you can perform: Regular-No Restrictions Marla Mills MD Feb 09, 2018 17:47
--- NOTE | 2018-02-09 17:49 | HHI.GIFU ---
Subjective Remarks Pt back from HIDA scan No emesis today States abdominal pain, no tenderness on exam States nausea Objective Vitals I&O Vital Signs Date Time Temp Pulse Resp B/P (MAP) Pulse Ox O2 Delivery O2 Flow Rate FiO2 02/09/18 16:50 98.3 105 17 148/76 (100) 97 02/09/18 13:30 152/78 (102) 02/09/18 10:50 97.9 104 18 183/116 (138) 94 02/09/18 06:50 98.0 91 17 206/105 (138) 96 02/09/18 04:00 83 02/09/18 04:00 98.7 79 20 102/53 (69) 95 02/09/18 03:30 186/71 (109) 02/09/18 00:00 99.8 71 21 109/57 (74) 91 02/09/18 00:00 84 02/08/18 20:02 99.9 85 18 120/57 (78) 91 02/08/18 20:00 87 02/08/18 18:50 98.6 102 18 193/88 (123) 93 02/08/18 17:50 98.5 105 18 208/95 (132) 100 I/O 02/08/18 02/08/18 02/08/18 02/09/18 02/09/18 02/09/18 07:00 15:00 23:00 07:00 15:00 23:00 Intake Total 480 ml Balance 480 ml Intake Oral 480 ml # Voids 2 3 2 # Bowel Movements 0 1 2 Laboratory Laboratory Tests Test 02/09/18 06:59 White Blood Count 8.9 Red Blood Count 4.31 Hemoglobin 11.3 Hematocrit 34.8 Mean Corpuscular Volume 80.9 Mean Corpuscular Hemoglobin 26.2 Mean Corpuscular Hemoglobin Concent 32.4 Red Cell Distribution Width 14.6 Platelet Count 214 Mean Platelet Volume 7.3 Blood Urea Nitrogen 25 Creatinine 1.02 Random Glucose 129 Calcium Level 8.9 Sodium Level 143 Potassium Level 3.3 Chloride Level 109 Carbon Dioxide Level 24.9 Anion Gap 9 Estimat Glomerular Filtration Rate 58 Imaging Last Impressions Abdomen/Pelvis CT 02/07/18 0000 Signed Impressions: Service Date/Time: Wednesday, February 07, 2018 22:09 - CONCLUSION: 1. Fat containing ventral hernia measuring about 13 cm in diameter and containing multiple loops of small bowel but without incarceration or obstruction. Jim Holley MD Physical Exam HEENT:Normocephalic; atraumatic CHEST: Even/unlabored CARDIAC: RRR ABDOMEN: Obese, soft, nontender, bowel sounds active SKIN: Normal; no rash; no jaundice. SHAVING MACHINE OPERATOR: No focal deficits; alert and oriented times three. Assessment and Plan Plan Assessment: - Coffee ground emesis with reports of hematemesis- began at 2 am this morning and reports multiple episodes. Hemoccult on emesis done in ER (+). H/H stable on admission. Pt denies history of GIB. Rare ETOH. Daily marijuana. Denies NSAIDs. Recently on Eliquis for bilateral DVT and history of PE- has not taken ' in 4-5 days. Associated epigastric pain that began yesterday, diarrhea since yesterday, denies melena, hematochezia, reports intermittent vomiting for the past couple days. (+) Fever, chills. Recent URI, did not take meds. Unsure of sick contacts, with vomiting but also has gastroparesis - Gastroparesis- takes Reglan as needed- not currently followed by a GI doctor, recently moved to [facility] - DM- insulin dependent- BGL 478 on arrival - HTN- per attending - History of PE 8 years ago, DVT a few months ago- on Eliquis, has not taken in 4-5 days - ESTEVAN- ? Dehydration (02/08) --> Pt on her side states continued abdominal and back pain, requesting IV Dilaudid. States multiple episodes of emesis, has not been witnessed by RNs or techs. S/P EGD yesterday for complaints of hematemesis --> Normal duodenum. Biopsy to r/o celiac dx. Gastritis. Esophagitis. Hiatal hernia. LFTs and lipase WNL. CT abdomen and pelvis --> Fat containing ventral hernia measuring 13 cm in diameter and containing multiple loops of small bowel but without incarceration or obstruction. BGL uncontrolled. H/H stable (02/09) Pt back from HIDA scan negative for biliary obstruction, blunted response to CCK. No emesis today, has been NPO for testing. States nausea, discussed with her importance of controlling BGL for gastroparesis. Plan: - JEFF - Reglan at DC - Control of BGL - OK to JUANITA from a GI standpoint - Have pt follow up with GI in office Pt has been seen and examined by myself and Dr. Casillas and this note is written on her behalf Shaunna Adan Feb 09, 2018 17:49
[2018-02-10] MEDS ORDERED: REMOVE OLD LIDOCAINE PATCH T-DERMAL SCH (01:00)
== END 2018-02-09 18:46 | disposition home or self-care (01) ==
LOC: NEPE 05:19 → NEDA 08:41 → N06B 17:25 → N06A 02-08 17:42
PROVIDERS: ADMIT Family Medicine; ATTEND Family Medicine
DX: K92.0 Hematemesis (principal); R10.13 Epigastric pain; R19.7 Diarrhea, unspecified; M54.5 Low back pain; M25.561 Pain in right knee; M25.551 Pain in right hip; D72.829 Elevated white blood cell count, unspecified; K44.9 Diaphragmatic hernia without obstruction or gangrene; I10 Essential (primary) hypertension; E11.43 Type 2 diabetes mellitus with diabetic autonomic (poly)neuropathy; K31.84 Gastroparesis; E11.65 Type 2 diabetes mellitus with hyperglycemia; E11.42 Type 2 diabetes mellitus with diabetic polyneuropathy; E78.00 Pure hypercholesterolemia, unspecified; R50.9 Fever, unspecified; K43.9 Ventral hernia without obstruction or gangrene; F32.9 Major depressive disorder, single episode, unspecified; F12.90 Cannabis use, unspecified, uncomplicated; E66.01 Morbid (severe) obesity due to excess calories; Z79.899 Other long term (current) drug therapy; Z79.4 Long term (current) use of insulin; Z79.01 Long term (current) use of anticoagulants; Z86.711 Personal history of pulmonary embolism; Z86.718 Personal history of other venous thrombosis and embolism; Z91.19 Patient's noncompliance with other medical treatment and regimen; W19.XXXA Unspecified fall, initial encounter
CPT/HCPCS: 00731; 43239; 72100; 73502; 73564; 74177; 78227; 80048; 80076; 81001; 82948; 83690; 84703; 85018; 85025; 85027; 88305; 88312; 96361; 96365; 96372; 96375; 96376; 99285; A9537; C9113; G0378; J0330; J1170; J1200; J1815; J2405; J2765; J2805; J3010; J7030; Q9963; Q9967